=== PATIENT | female | born 1965 | race American Indian/Alaskan Native ===

== ENCOUNTER 2016-11-12 06:18 | Day surgery (SDC) | payer MEDICAID ==
[~2016-11-12 06:18] MED LIST: TETCAINE OS PRN
[2016-11-12] MEDS ORDERED: TETRACAINE 0.5% OS PRN (07:16)
[2016-11-12] MEDS ORDERED: PRED FORTE 1% ONE (08:00)
[2016-11-12] MEDS: VIGAMOX OS SCH ×3 (08:45→08:55)
[2016-11-12] MEDS: AK-Dilate OS SCH ×3 (08:45→08:55)
[2016-11-12] MEDS: MYDRIACYL OS SCH ×3 (08:45→08:55)
--- NOTE | 2016-11-12 08:59 | Anesthesia Consultation ---
Anesthesia Consult and Med Hx Date of service: 11/12/16 - Airway Anesthetic Teeth Evaluation: Poor ROM Head & Neck: Adequate Mental/Hyoid Distance: Adequate Mallampati Class: Class I Intubation Access Assessment: Good - Pulmonary Exam CTA: Yes - Cardiac Exam Cardiac Exam: RRR - Pre-Operative Health Status ASA Pre-Surgery Classification: ASA3 Proposed Anesthetic Plan: MAC - Cardiovascular System Hx Heart Attack/AMI: Yes (about 15yrs ago) Hx Percutaneous Transluminal Coronary Angioplasty (PTCA): Yes - Central Nervous System Hx Psychiatric Problems: Yes - Gastrointestinal Hx Gastroesophageal Reflux Disease: Yes - Endocrine 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
[2016-11-12] MEDS ORDERED: NACL 0.9% 1000 ML 1,000 ML IV SCH ×2 (09:00→10:00)
[2016-11-12] MEDS ORDERED: PEPCID PO NR (09:00)
--- NOTE | 2016-11-12 09:00 | Anesthesia Day of Surgery ---
Anesthesia Day of Surgery - Day of Surgery Patient Examined: Yes Patient H&P Reviewed: Yes Patient is NPO: Yes
[2016-11-12] MEDS ORDERED: VERSED ONE (11:06)
[2016-11-12] MEDS ORDERED: SUBLIMAZE ONE (11:07)
[2016-11-12] MEDS ORDERED: ADRENALINE P/F IV ONE (11:30)
--- NOTE | 2016-11-12 12:10 | Short Stay Summary ---
Short Stay Documentation Date of service: 11/12/16 - History H&P: obtained from office - Allergies and Medications Current Medications: Allergies No Known Allergies Allergy (Unverified 11/06/16 14:25) Home Medications Medication Instructions Recorded Confirmed Last Taken Type Insulin NPH/Regular [Novolin 70/30] 15 unit SQ QPM #1 vial 10/22/16 11/12/16 Rx Insulin NPH/Regular [Novolin 70/30] 45 unit SQ QAM #1 vial 10/22/16 11/12/16 Rx Omeprazole [Omeprazole] 40 mg PO DAILY 10/22/16 11/12/16 11/11/16 History Syring W-Ndl,Disp,Insul,0.5 ml 1 each MC BID #1 box 10/22/16 11/12/16 10/22/16 Rx [[facility]ocate Syringes] Active Medications Famotidine (Pepcid) 20 mg PO PREOP NR Stop: 11/12/16 23:59 Last Admin: 11/12/16 09:03 Dose: 20 mg Sodium Chloride (Nacl 0.9% 1000 Ml) 1,000 mls @ 150 mls/hr IV DIRECT JESSICA Last Admin: 11/12/16 09:06 Dose: 150 mls/hr Sodium Chloride (Nacl 0.9% 1000 Ml) 1,000 mls @ 150 mls/hr IV DIRECT JESSICA Moxifloxacin HCl (Vigamox) 1 drops OS Q5MIN [facility] Stop: 11/14/16 00:02 Last Admin: 11/12/16 08:55 Dose: 1 drops Phenylephrine HCl (Ak-Dilate) 1 drops OS Q5M [facility] Last Admin: 11/12/16 08:55 Dose: 1 drops Prednisolone Acetate (Pred Forte 1%) 1 drops OS QID JESSICA Tetracaine HCl (Tetracaine 0.5%) 1 drops OS Q5M PRN PRN Reason: Anesthesia Stop: 11/12/16 16:00 Last Admin: 11/12/16 08:45 Dose: 1 drops Tropicamide (Mydriacyl) 1 drops OS Q5MIN [facility] Last Admin: 11/12/16 08:55 Dose: 1 drops - Brief post op/procedure progress note Date of procedure: 11/12/16 Pre-op diagnosis: cataract left eye Post-op diagnosis: same Procedure: Phacoemulsification with intraocular lens insertion left eye Anesthesia: MAC Surgeon: GHANSHYAM DONIS Estimated blood loss: none Pathology: none Condition: stable - Disposition Condition at discharge: Good Disposition: DISCHARGED TO HOME OR SELFCARE - Discharge Diagnoses (1) Cataract Status: Resolved
--- NOTE | 2016-11-12 12:11 | Operative Report ---
Operative Report Operative Report: PATIENT'S NAME: DATE OF : DATE OF SURGERY: 11/12/2016 PREOPERATIVE DIAGNOSIS: Cataract left eye POSTOPERATIVE DIAGNOSIS: Same OPERATIVE PROCEDURE: Phacoemulsification with intraocular lens implantation, left eye SURGEON: Katelyn Goins M.D. [employer]IST SURGEON: Edison Lens: [id number] 24.0 D ANESTHESIA: Monitored anesthesia care in combination with topical and intracameral anesthesia because of the established specific risk of reflux, arrhythmias, or anxiety attacks associated with ocular manipulation, as well as the difficulty of the take off worker to manage such potentially catastrophic events while simultaneously attempting to complete the surgical procedure and was deemed necessary for the patient's safety to have an Bakery Sales Clerk present during the procedure whenever possible. An Bakery Sales Clerk was utilized to regulate the intravenous sedation of the patient so the patient was cooperative yet not asleep in order for the patient to successfully maintain fixation of the eye on the operating light of the microscope. COMPLICATIONS: No surgical complications No blood loss. ALLERGIES: No known drug allergies PROGNOSIS: Excellent INDICATIONS FOR SURGERY: The patient is undergoing surgery in the hopes of eliminating or improving these visual difficulties. PROCEDURE: After arriving at the surgery center, the patient was given topical anesthetic and dilating drops, as noted in the record. The patient was then taken into the operating room and given more anesthetic drops. The eyelids, lashes, and lid margins were scrubbed with Betadine solution, and the patient was draped. The Nurse Bakery Sales Clerk administered IV sedation and monitored the patient during the procedure. The eye was then fixated with a 0.12, and a stab incision was made in the peripheral clear cornea into the anterior chamber. This was made on my left side. Viscoelastic was next used to fill the anterior chamber. The eye was once again fixated with the 0.12 forceps and a keratome was used make an incision in clear cornea peripherally on my right hand side temporally. The capsule forceps were used to open the central anterior capsule and then make a continuous round capsulotomy. Hydrodissection was carried out utilizing a cannula and balanced salt solution to delineate the cortical material from the capsule and the nucleus from the cortical material. The phaco tip was introduced into the eye and used to remove the anterior cortical material in the area of the capsulotomy. Then the phaco tip was buried into the nucleus, and a chopping instrument was introduced into the eye and used to provide countertraction in the nucleus between this instrument and the phaco tip fracturing the nucleus. This procedure was repeated multiple times, providing multiple small segments of the lens, and then the phaco tip was used to remove each of these segments. An I/A tip was then used to remove the remaining cortex. The anterior chamber was refilled with viscoelastic. An one-piece, acrylic intraocular lens was then placed into an inserting cartridge. The tip of the inserting cartridge was introduced into the keratome incision and into the anterior chamber. The implant was gently advanced through the cartridge and into the eye, where it unfolded, and both haptics were placed in the capsular bag, where it centered nicely and appeared to be well fixated. After placement of the intraocular lens, the I~and~A handpiece was placed back into the eye and used to remove the viscoelastic, including viscoelastic that was behind the optic of the intraocular lens. The anterior chamber was then filled with balanced salt solution, and hydration of the wound was used to cause swelling of the wound and more appropriate watertight closure. When the wound was found to be firm, the patient was asked to comment on how bright the light was. If there was no light perception at all or if the light was substantially dimmer than during the rest of the surgery, the amount of fluid in the eye was decompressed to lower the intraocular pressure until the patient could see the bright light again. This was done to avoid any damage or decreased blood flow to the optic nerve. MEDICATIONS APPLIED AT END OF SURGERY: One drop of Pred Forte and Vigamox The patient was given a shield to wear at night and was instructed not to rub or push on the eye. DISCHARGE SUMMARY: The patient was released in stable condition. The patient and those with the patient were given a written sheet of postoperative instructions and counseling on any abnormal laboratory studies. The patient is to see us tomorrow for follow-up in the office and is to call immediately for any difficulties. Katelyn Goins M.D. Date
--- NOTE | 2016-11-12 12:30 | Post Anesthesia Evaluation ---
- Post Anesthesia Evaluation Patient Participated: Yes Airway Patent: Yes Stable Respiratory Function: Yes Nausea/Vomiting: No Temp > 96.8F: Yes Pain Manageable: Yes Adequeate Hydration: Yes Anesthesia Complications: No
[2016-11-12 12:44] VITALS: BP 110/62
[2016-11-12] MEDS ORDERED: PRED FORTE 1% OS SCH (14:00)
== END 2016-11-12 13:00 | disposition home or self-care (01) ==
LOC: OR 06:18
DX: E11.36 Type 2 diabetes mellitus with diabetic cataract (principal); I25.10 Atherosclerotic heart disease of native coronary artery without angina pectoris; M19.90 Unspecified osteoarthritis, unspecified site; I10 Essential (primary) hypertension; K21.9 Gastro-esophageal reflux disease without esophagitis; Z98.41 Cataract extraction status, right eye; Z90.710 Acquired absence of both cervix and uterus; Z98.890 Other specified postprocedural states; Z95.5 Presence of coronary angioplasty implant and graft
CPT/HCPCS: 66984; 82962; J0171; J2250; J3010; J7030; V2632; J1815

== ENCOUNTER 2017-10-06 00:56 | Emergency (ER) | payer MEDICAID ==
[2017-10-06 01:53] LABS: Basophils % (Auto) 0.5 % (0.0-1.8); Eosinophils % (Auto) 1.3 % (0.0-4.3); Hematocrit 31.5 % (30.3-42.9); Hemoglobin 10.7 gm/dl (10.1-14.3); Mean Corpuscular HGB Conc 34 % (30-34); Mean Corpuscular Hemoglobin 30 pg (28-32); Mean Corpuscular Volume 87 fl (79-97); Platelet Count 273 K/mm3 (140-440); Red Blood Count 3.62 M/mm3 (3.65-5.03); Red Cell Distribution Width 13.7 % (13.2-15.2); White Blood Count 7.7 K/mm3 (4.5-11.0)
[2017-10-06 02:16] LABS: Albumin 3.4 g/dL (3.9-5); Bilirubin,Total 0.4 mg/dL (0.1-1.2); Calcium 9.9 mg/dL (8.4-10.2); Chloride 97.8 mmol/L (98-107); Potassium 3.6 mmol/L (3.6-5.0); Total Protein 6.9 g/dL (6.3-8.2)
--- NOTE | 2017-10-06 05:45 | XRay Report ---
FINAL REPORT EXAM: XR ABDOMEN 2V HISTORY: ABDOMINAL PAIN COMPARISONS: None. FINDINGS: AP views of the abdomen and pelvis No pneumoperitoneum. Bowel gas pattern is nonobstructive. No pathologic calcification or fracture. IMPRESSION: No acute findings. Consider CT for more sensitive and specific evaluation of abdominal pain as warranted.
[2017-10-06 08:27] LABS: Bilirubin,Urine NEG (Negative); Blood,Urine NEG (Negative); Ketones,Urine NEG (Negative); Leukocyte Esterase,Urine SM (Negative); Nitrite,Urine NEG (Negative); Urobilinogen,Urine < 2.0 mg/dL (<2.0)
[2017-10-06] MEDS ORDERED: TYLENOL PO STA (13:38)
[2017-10-06] MEDS ORDERED: NACL 0.9% 1000 ML 1,000 ML IV ONE (13:38)
--- NOTE | 2017-10-06 13:42 | Emergency Department Report ---
ED General Adult HPI - General Chief complaint: Abdominal Pain Stated complaint: ABD PAIN Time Seen by Provider: 10/06/17 13:31 Source: patient, RN notes reviewed Mode of arrival: Stretcher Limitations: No Limitations - History of Present Illness Initial comments: This is a 52-year-old female who was previously unknown to this provider. Does not have a local primary care doctor, patient endorses past surgical history of hysterectomy, and think she is a diabetic. Patient presents to the ER with abdominal cramping, inability to defecate for one week. Denies headache, neck pain, chest pain, shortness of breath, urinary symptoms. Her symptoms are constant. It did not radiate anywhere. Patient reports her pain increases with palpation, and decreases when eating. -: Gradual, days(s) Location: abdomen Quality: aching Consistency: constant Improves with: rest Worsens with: eating Associated Symptoms: loss of appetite. denies: confusion, chest pain, cough, diaphoresis, fever/chills, headaches - Related Data Home Medications Medication Instructions Recorded Confirmed Last Taken Omeprazole [Omeprazole] 40 mg PO DAILY 10/22/16 11/12/16 11/11/16 Previous Rx's Medication Instructions Recorded Last Taken Type Insulin NPH/Regular [Novolin 70/30] 15 unit SQ QPM #1 vial 10/22/16 10/22/16 Rx Insulin NPH/Regular [Novolin 70/30] 45 unit SQ QAM #1 vial 10/22/16 10/22/16 Rx Syringe-Needle,Insulin,0.5 ml 1 each MC BID #1 box 10/22/16 10/22/16 Rx [[facility] Syringes] Polyethylene Glycol 3350 [Miralax 17 gm PO QDAY #30 packet 10/06/17 Unknown Rx 3350] Allergies Allergy/AdvReac Type Severity Reaction Status Date / Time No Known Allergies Allergy Unverified 11/06/16 14:25 ED Review of Systems ROS: Stated complaint: ABD PAIN Other details as noted in HPI Constitutional: denies: fever Eyes: denies: eye discharge ENT: denies: epistaxis Respiratory: denies: cough Cardiovascular: denies: chest pain Gastrointestinal: abdominal pain, constipation Genitourinary: dysuria Musculoskeletal: as per HPI Skin: as per HPI Neurological: as per HPI. denies: weakness ED Past Medical Hx - Past Medical History Hx Heart Attack/AMI: Yes (about 15yrs ago) Hx Diabetes: Yes (since 1996) Hx GERD: Yes Hx Arthritis: Yes - Surgical History Additional Surgical History: Tonsilectomy, Hysterectomy - Social History Smoking Status: Never Smoker Substance Use Type: None - Medications Home Medications: Home Medications Medication Instructions Recorded Confirmed Last Taken Type Insulin NPH/Regular [Novolin 70/30] 15 unit SQ QPM #1 vial 10/22/16 11/12/16 Rx Insulin NPH/Regular [Novolin 70/30] 45 unit SQ QAM #1 vial 10/22/16 11/12/16 Rx Omeprazole [Omeprazole] 40 mg PO DAILY 10/22/16 11/12/16 11/11/16 History Syringe-Needle,Insulin,0.5 ml 1 each MC BID #1 box 10/22/16 11/12/16 10/22/16 Rx [[facility] Syringes] Polyethylene Glycol 3350 [Miralax 17 gm PO QDAY #30 packet 10/06/17 Unknown Rx 3350] ED Physical Exam - General Limitations: No Limitations General appearance: alert, in no apparent distress - Head Head exam: Present: atraumatic, normocephalic - Eye Eye exam: Present: normal appearance, EOMI. Absent: nystagmus - ENT ENT exam: Present: normal exam, normal orophraynx, mucous membranes moist, normal external ear exam - Neck Neck exam: Present: normal inspection, full ROM - Respiratory Respiratory exam: Present: normal lung sounds bilaterally. Absent: respiratory distress - Cardiovascular Cardiovascular Exam: Present: normal rhythm, tachycardia, normal heart sounds. Absent: systolic murmur, diastolic murmur, rubs, gallop - GI/Abdominal GI/Abdominal exam: Present: soft, tenderness, normal bowel sounds. Absent: distended, guarding, rebound, rigid, pulsatile mass - Extremities Exam Extremities exam: Present: normal inspection, full ROM. Absent: pedal edema, joint swelling, calf tenderness - Back Exam Back exam: Present: normal inspection, full ROM. Absent: tenderness, CVA tenderness (R), paraspinal tenderness, vertebral tenderness - Neurological Exam Neurological exam: Present: alert, CN II-XII intact, other (Extraocular movements intact. Tongue midline. No facial droop. Facial sensation intact to light touch in the V1, V2, V3 distribution bilaterally. 5 and 5 strength in 4 extremities.. Sensation is intact to light touch in 4 extremities.). Absent : motor sensory deficit - Psychiatric Psychiatric exam: Present: normal affect, normal mood - Skin Skin exam: Present: warm, dry, intact, normal color. Absent: rash ED Course Vital Signs 10/06/17 10/06/17 10/06/17 01:02 01:07 15:03 Temperature 97.8 F 97.8 F 98.8 F Pulse Rate 114 H 100 H Respiratory 20 20 16 Rate Blood Pressure 132/80 132/80 Blood Pressure 146/74 [Right] O2 Sat by Pulse 100 100 Oximetry - Reevaluation(s) Reevaluation #1: 10/06/17 14:45 Differential diagnosis, including but limited to: Dehydration, renal insufficiency, constipation, appendicitis, colitis Assessment and plan: 52-year-old female with a primary complaint of constipation , she is afebrile with reassuring vital signs with exception of tachycardia. Laboratory studies do not demonstrate significant anemia, she is found to have mild renal insufficiency, and glucose urea. Patient can follow-up in outpatient primary care doctor for both of these incidental findings. Noncontrast CT scan of the abdomen and pelvis is obtained, patient given IV fluids. When I go to evaluate the patient initially, the patient is sitting on a stretcher and in no distress. Patient has been observed in the ER for hours without clinical decompensation thus far. Reevaluation #2: 10/06/17 15:20 CT scan reviewed. Constipation is suggested. Patient will be discharged with MiraLAX. She will be instructed to follow-up in outpatient primary care doctor for incidental CT scan findings. Return precautions Cautions were reviewed. 10/06/17 15:21 ED Medical Decision Making - Lab Data Result diagrams: 10/06/17 01:25 10/06/17 01:25 Vital Signs 10/06/17 10/06/17 01:02 01:07 Temperature 97.8 F 97.8 F Pulse Rate 114 H Respiratory 20 20 Rate Blood Pressure 132/80 132/80 O2 Sat by Pulse 100 Oximetry Lab Results 10/06/17 10/06/17 10/06/17 Range/Units 01:25 01:25 Unknown WBC 7.7 (4.5-11.0) K/mm3 RBC 3.62 L (3.65-5.03) M/mm3 Hgb 10.7 (10.1-14.3) gm/dl Hct 31.5 (30.3-42.9) % MCV 87 (79-97) fl MCH 30 (28-32) pg MCHC 34 (30-34) % RDW 13.7 (13.2-15.2) % Plt Count 273 (140-440) K/mm3 Lymph % (Auto) 30.7 (13.4-35.0) % [place] % (Auto) 6.9 (0.0-7.3) % Eos % (Auto) 1.3 (0.0-4.3) % Baso % (Auto) 0.5 (0.0-1.8) % Lymph # 2.4 (1.2-5.4) K/mm3 [place] # 0.5 (0.0-0.8) K/mm3 Eos # 0.1 (0.0-0.4) K/mm3 Baso # 0.0 (0.0-0.1) K/mm3 Seg Neutrophils % 60.6 (40.0-70.0) % Seg Neutrophils # 4.6 (1.8-7.7) K/mm3 Sodium 138 (137-145) mmol/L Potassium 3.6 (3.6-5.0) mmol/L Chloride 97.8 L (98-107) mmol/L Carbon Dioxide 23 (22-30) mmol/L Anion Gap 21 mmol/L BUN 13 (7-17) mg/dL Creatinine 1.9 H (0.7-1.2) mg/dL Estimated GFR 33 ml/min BUN/Creatinine Ratio 7 % Glucose 178 H (65-100) mg/dL Calcium 9.9 (8.4-10.2) mg/dL Total Bilirubin 0.40 (0.1-1.2) mg/dL AST 26 (5-40) units/L ALT 26 (7-56) units/L Alkaline Phosphatase 83 (35-129) units/L Total Protein 6.9 (6.3-8.2) g/dL Albumin 3.4 L (3.9-5) g/dL Albumin/Globulin Ratio 1.0 % Lipase 7 L (13-60) units/L Urine Color Yellow (Yellow) Urine Turbidity Clear (Clear) Urine pH 6.0 (5.0-7.0) Ur Specific [place] 1.009 (1.003-1.030) Urine Protein 100 mg/dl (Negative) mg/dL Urine Glucose (UA) >=500 (Negative) mg/dL Urine Ketones Neg (Negative) mg/dL Urine Blood Neg (Negative) Urine Nitrite Neg (Negative) Urine Bilirubin Neg (Negative) Urine Urobilinogen < 2.0 (<2.0) mg/dL Ur Leukocyte Esterase Sm (Negative) Urine WBC (Auto) 17.0 H (0.0-6.0) /HPF Urine RBC (Auto) 5.0 (0.0-6.0) /HPF U Epithel Cells (Auto) < 1.0 (0-13.0) /HPF - Radiology Data Radiology results: pending, report reviewed, image reviewed interpreted by me: X-ray of the abdomen and pelvis negative for acute disease Critical care attestation.: If time is entered above; I have spent that time in minutes in the direct care of this critically ill patient, excluding procedure time. ED Disposition Clinical Impression: Renal insufficiency, Constipation Disposition: DC-01 TO HOME OR SELFCARE Is pt being admited?: No Does the pt Need Aspirin: No Condition: Stable Instructions: Constipation (ED) Additional Instructions: Laboratory studies demonstrated mild decrease in kidney function. Avoid consumption of ibuprofen, Motrin, Naprosyn, Aleve. Follow-up with either her primary care doctor or kidney doctor for this within the next month. Dr. Giordano is a local primary care doctor. Dr. Siddiqi is a local kidney doctor. Please note that CT scan of the abdomen and pelvis demonstrated nonspecific lesions in the lungs. This should be followed up by her primary care doctor within the next 2-3 months. Not following up in a timely fashion as recommended may resultant undiagnosed tumor, cancer, malignancy. Increased water consumption to 6-8 cups of water per day. Eat plenty of fruits, fibers, vegetables Return to the ER right away with new pain, worsened pain, migration of pain, fevers, chills, lethargy, irritability, projectile vomiting, change in mental status, confusion, inability to tolerate liquid feeds. Referrals: PRIMARY CAREMD [Primary Care Provider] - 3-5 Days [facility] [Provider Group] - 3-5 Days SYLVESTER SIDDIQI MD [Staff Physician] - 3-5 Days ALEJANDRO GIORDANO MD [Staff Physician] - 3-5 Days
[2017-10-06 15:06] VITALS: BP 146/74
--- NOTE | 2017-10-06 15:15 | Cat Scan Report ---
FINAL REPORT PROCEDURE: CT ABDOMEN PELVIS WO CON TECHNIQUE: Computerized axial tomography of the abdomen and pelvis was performed without intravenous contrast. This study is performed without intravascular contrast material and its sensitivity for abdominal and pelvic pathology, including neoplasms, inflammation, abscess, free fluid, thrombosis, arterial dissection and infarction, is reduced compared with a contrast enhanced study. Oral contrast is not present limiting evaluation of the bowel as well. HISTORY: abd pain COMPARISON: Abdomen 10/06/2017 FINDINGS: Visualized lower thorax: Subtle emphysematous changes left worse than right. 2.2 millimeter nodular density of the right lower lobe posteriorly for example seen on series 3, image 14.. Liver: Normal size and attenuation. Spleen: Normal size and attenuation. Gallbladder and biliary system: Normal. Pancreas: Normal. Adrenals: Normal. Kidneys: Normal. GI tract: Retained oral contrast versus inspissated stool within the rectum and distal sigmoid colon. Colonic constipation without obstruction. Normal appendix. Lymph nodes and mesentery: No mesenteric mass. No lymphadenopathy. Vasculature: Mild atherosclerosis. No abdominal aortic aneurysm. Bladder: Normal. Reproductive organs: Hysterectomy. Peritoneum: No free fluid. Musculoskeletal structures: No significant abnormality. Other: None. IMPRESSION: Colonic constipation without bowel obstruction. Hyperdensity within the distal sigmoid colon and rectum either retained oral contrast or inspissated stool. 2.2 millimeter right lower lobe nodular density possibly a nodular scar. Follow-up with noncontrast CT of the chest in 3 months is recommended to ensure stability of this finding as well as to evaluate for multiplicity of lesions. Hysterectomy.
== END 2017-10-06 15:35 | disposition home or self-care (01) ==
LOC: ED 00:56
DX: K59.00 Constipation, unspecified (principal); E11.9 Type 2 diabetes mellitus without complications; K21.9 Gastro-esophageal reflux disease without esophagitis; M19.90 Unspecified osteoarthritis, unspecified site; I25.2 Old myocardial infarction; Z88.1 Allergy status to other antibiotic agents; Z90.89 Acquired absence of other organs; Z90.710 Acquired absence of both cervix and uterus
CPT/HCPCS: 36415; 74020; 74176; 80053; 81001; 83690; 85025; 96360; 99285; J7030

== ENCOUNTER 2017-10-07 19:11 | Emergency (ER) | payer MEDICAID ==
[2017-10-07 21:14] VITALS: BP 130/77
[2017-10-07 21:42] LABS: Basophils % (Auto) 0.3 % (0.0-1.8); Eosinophils % (Auto) 2.2 % (0.0-4.3); Hematocrit 29.5 % (30.3-42.9); Hemoglobin 9.9 gm/dl (10.1-14.3); Mean Corpuscular HGB Conc 34 % (30-34); Mean Corpuscular Hemoglobin 29 pg (28-32); Mean Corpuscular Volume 86 fl (79-97); Platelet Count 257 K/mm3 (140-440); Red Blood Count 3.42 M/mm3 (3.65-5.03); Red Cell Distribution Width 13.8 % (13.2-15.2); White Blood Count 10.5 K/mm3 (4.5-11.0)
[2017-10-07 22:03] LABS: Albumin 3.3 g/dL (3.9-5); Bilirubin,Total 0.4 mg/dL (0.1-1.2); Calcium 9.4 mg/dL (8.4-10.2); Potassium 3.9 mmol/L (3.6-5.0)
[2017-10-07 22:45] LABS: Albumin/Globulin Ratio 1.1 %; Total Protein 6.2 g/dL (6.3-8.2)
== END 2017-10-08 01:45 | disposition left against medical advice (07) ==
LOC: ED 19:11
DX: K59.00 Constipation, unspecified (principal); Z53.21 Procedure and treatment not carried out due to patient leaving prior to being seen by health care provider
CPT/HCPCS: 36415; 80053; 82962; 85025

== ENCOUNTER 2018-07-21 00:22 | Emergency (ER) | payer MEDICAID ==
[2018-07-21 06:14] VITALS: BP 141/88
[2018-07-21] MEDS ORDERED: MOTRIN PO ONE (06:15)
--- NOTE | 2018-07-21 06:19 | Emergency Department Report ---
- General Chief complaint: Laceration/Recheck/Suture Stated complaint: NECK PAIN Time Seen by Provider: 07/21/18 06:14 Source: patient Mode of arrival: Ambulatory Limitations: No Limitations - History of Present Illness Initial comments: 53-year-old -Chinese female with a past medical history of diabetes and hypertension comes in for a ball in the back of her neck and on her left inner breast. Patient has had these in the recent past. Patient's been taking Tylenol for pain which she reports has not helped. Patient is insulin diabetic and NovoLog 7030, first starting and pravastatin. Patient is followed by Dr. Luis Manuel Darby. Patient reports she has a follow-up appointment with her primary care provider on 07/26/2018. MD complaint: abscess/boil -: days(s) (3) Tetanus Up to Date: yes Location: neck Severity scale (0 -10): 8 Quality: aching Consistency: constant Improves with: none Worsens with: none Context: none Associated symptoms: denies other symptoms - Related Data Home Medications Medication Instructions Recorded Confirmed Last Taken Omeprazole 40 mg PO DAILY 10/22/16 11/12/16 11/11/16 Previous Rx's Medication Instructions Recorded Last Taken Type Insulin NPH/Regular [Novolin 70/30] 15 unit SQ QPM #1 vial 10/22/16 10/22/16 Rx Insulin NPH/Regular [Novolin 70/30] 45 unit SQ QAM #1 vial 10/22/16 10/22/16 Rx Syringe-Needle,Insulin,0.5 ml 1 each MC BID #1 box 10/22/16 10/22/16 Rx [Advocate Syringes] Polyethylene Glycol 3350 [Miralax 17 gm PO QDAY #30 packet 10/06/17 Unknown Rx 3350] Cephalexin [Keflex] 500 mg PO BID #20 capsule 07/21/18 Unknown Rx Ibuprofen [Motrin 600 MG tab] 600 mg PO Q8H PRN #30 tablet 07/21/18 Unknown Rx Sulfamethoxazole/Trimethoprim 1 each PO BID 10 Days #20 tablet 07/21/18 Unknown Rx [Bactrim DS TAB] Allergies Allergy/AdvReac Type Severity Reaction Status Date / Time doxycycline Allergy Anaphylaxis Verified 10/07/17 22:04 erythromycin base Allergy Anaphylaxis Verified 10/07/17 22:04 Tetracyclines Allergy Anaphylaxis Verified 10/07/17 22:04 Abscess Boil HPI - HPI Chief Complaint: Laceration/Recheck/Suture Stated Complaint: NECK PAIN Time Seen by Provider: 07/21/18 06:14 Duration: 3 Days Location: Neck Severity: Moderate History: Yes Pain, Yes Previous History, Yes Insect Bite, No Fever, No Purulent Drainage, No Numbness, No Foreign Body Home Medications: Home Medications Medication Instructions Recorded Confirmed Last Taken Omeprazole 40 mg PO DAILY 10/22/16 11/12/16 11/11/16 Previous Rx's Medication Instructions Recorded Last Taken Type Insulin NPH/Regular [Novolin 70/30] 15 unit SQ QPM #1 vial 10/22/16 10/22/16 Rx Insulin NPH/Regular [Novolin 70/30] 45 unit SQ QAM #1 vial 10/22/16 10/22/16 Rx Syringe-Needle,Insulin,0.5 ml 1 each MC BID #1 box 10/22/16 10/22/16 Rx [Advocate Syringes] Polyethylene Glycol 3350 [Miralax 17 gm PO QDAY #30 packet 10/06/17 Unknown Rx 3350] Cephalexin [Keflex] 500 mg PO BID #20 capsule 07/21/18 Unknown Rx Ibuprofen [Motrin 600 MG tab] 600 mg PO Q8H PRN #30 tablet 07/21/18 Unknown Rx Sulfamethoxazole/Trimethoprim 1 each PO BID 10 Days #20 tablet 07/21/18 Unknown Rx [Bactrim DS TAB] Allergies/Adverse Reactions: Allergies Allergy/AdvReac Type Severity Reaction Status Date / Time doxycycline Allergy Anaphylaxis Verified 10/07/17 22:04 erythromycin base Allergy Anaphylaxis Verified 10/07/17 22:04 Tetracyclines Allergy Anaphylaxis Verified 10/07/17 22:04 ED Review of Systems ROS: Stated complaint: NECK PAIN Other details as noted in HPI Comment: All other systems reviewed and negative Skin: lesions ED Past Medical Hx - Past Medical History Previous Medical History?: Yes Hx Heart Attack/AMI: Yes (about 15yrs ago) Hx Diabetes: Yes (since 1996) Hx GERD: Yes Hx Arthritis: Yes - Surgical History Past Surgical History?: Yes Additional Surgical History: Tonsilectomy, Hysterectomy - Social History Smoking Status: Never Smoker Substance Use Type: None - Medications Home Medications: Home Medications Medication Instructions Recorded Confirmed Last Taken Type Insulin NPH/Regular [Novolin 70/30] 15 unit SQ QPM #1 vial 10/22/16 11/12/16 Rx Insulin NPH/Regular [Novolin 70/30] 45 unit SQ QAM #1 vial 10/22/16 11/12/16 Rx Omeprazole 40 mg PO DAILY 10/22/16 11/12/16 11/11/16 History Syringe-Needle,Insulin,0.5 ml 1 each MC BID #1 box 10/22/16 11/12/16 10/22/16 Rx [Advocate Syringes] Polyethylene Glycol 3350 [Miralax 17 gm PO QDAY #30 packet 10/06/17 Unknown Rx 3350] Cephalexin [Keflex] 500 mg PO BID #20 capsule 07/21/18 Unknown Rx Ibuprofen [Motrin 600 MG tab] 600 mg PO Q8H PRN #30 tablet 07/21/18 Unknown Rx Sulfamethoxazole/Trimethoprim 1 each PO BID 10 Days #20 tablet 07/21/18 Unknown Rx [Bactrim DS TAB] ED Physical Exam - General Limitations: No Limitations General appearance: alert, in no apparent distress - Head Head exam: Present: atraumatic, normocephalic - Eye Eye exam: Present: EOMI - ENT ENT exam: Present: mucous membranes moist - Neurological Exam Neurological exam: Present: alert, oriented X3 - Psychiatric Psychiatric exam: Present: normal affect, normal mood - Skin Skin exam: Present: warm, dry. Absent: rash - Expanded Skin Exam Expanded Type of lesion: Present: abscess Distribution of rash: neck, other (inner left breast) Description of rash: Present: tenderness, erythematous, fluctuant, indurated ED Course Vital Signs 07/21/18 07/21/18 00:34 06:13 Temperature 99.4 F 98.9 F Pulse Rate 86 88 Respiratory 16 18 Rate Blood Pressure 148/90 Blood Pressure 141/88 [Left] O2 Sat by Pulse 100 100 Oximetry ED Medical Decision Making - Medical Decision Making Patient was evaluated by this provider fast track. Ibuprofen given for pain management First dose of antibiotics given to patient. Discussed with patient to follow up with her primary care provider. Critical care attestation.: If time is entered above; I have spent that time in minutes in the direct care of this critically ill patient, excluding procedure time. ED Disposition Clinical Impression: Abscess Disposition: DC-01 TO HOME OR SELFCARE Is pt being admited?: No Does the pt Need Aspirin: No Condition: Stable Instructions: Abscess (ED) Additional Instructions: Complete all antibiotics as prescribed. Pain medication as needed for pain. Follow-up with her primary care provider in the next 3-5 days. Prescriptions: Cephalexin [Keflex] 500 mg PO BID #20 capsule Ibuprofen [Motrin 600 MG tab] 600 mg PO Q8H PRN #30 tablet PRN Reason: Pain Sulfamethoxazole/Trimethoprim [Bactrim DS TAB] 1 each PO BID 10 Days #20 tablet Referrals: LUIS MANUEL DARBY MD [Primary Care Provider] - 3-5 Days
[2018-07-21] MEDS ORDERED: KEFLEX PO ONE (06:22)
[2018-07-21] MEDS ORDERED: BACTRIM DS PO ONE (06:22)
== END 2018-07-21 06:30 | disposition home or self-care (01) ==
LOC: ED 00:22
DX: N61.1 Abscess of the breast and nipple (principal); L02.11 Cutaneous abscess of neck; M19.90 Unspecified osteoarthritis, unspecified site; K21.9 Gastro-esophageal reflux disease without esophagitis; E11.9 Type 2 diabetes mellitus without complications; I25.2 Old myocardial infarction; Z90.89 Acquired absence of other organs; Z90.710 Acquired absence of both cervix and uterus; Z79.899 Other long term (current) drug therapy; Z88.1 Allergy status to other antibiotic agents
CPT/HCPCS: 99282

== ENCOUNTER 2019-12-17 10:55 | Inpatient (IN) | payer MEDICAID ==
[2019-12-17] MEDS ORDERED: NALOXONE 0.4 MG/1 ML INJ IV STA (11:03)
[2019-12-17] MEDS ORDERED: DEXTROSE 50% IN WATER (25GM) 50 ML VIAL IV ONE (11:03)
--- NOTE | 2019-12-17 11:23 | Emergency Department Report ---
ED Altered Mental Status HPI - General Chief Complaint: Altered Mental Status Stated Complaint: AMS Time Seen by Provider: 12/17/19 11:02 Source: EMS, old records reviewed Mode of arrival: Stretcher Limitations: Altered Mental Status - History of Present Illness Initial Comments: Mrs. Dobson is a 54 yo female with hx of DM and HTN presents with altered mental status. Family called 911. Patient was found on the bathroom floor. Patient only followed limited commands per EMS. BG 59 per EMS. Patient is nonverbal at this time. I obtained additional information by brother who called EMS. I spoke with this gentleman by phone. He called 911 after finding his sister unresponsive. Found in the bathroom with vomit on the side of her face. He was unable to wake her up. Mrs. Dobson is visiting from [place], [place]. Brother states that Ms. Dobson has been on government assistance for mental health disorder. Mrs. Dobson has been admitted to [facility]. Brother states that she has been "living on street" and in homeless shelters. Mrs. Dobson has been estranged from the family. She leaves from weeks and months at a time without communication with the family. She does not appear to have a personal address. She has her mail sent to her mother's home. MD Complaint: altered mental status, decreased responsiveness -: This morning, unknown Severity: severe Consistency of Symptoms: constant Context: diabetes Associated Symptoms: other (unable to be obtained) - Related Data Home Medications Medication Instructions Recorded Confirmed Last Taken Omeprazole 40 mg PO DAILY 10/22/16 11/12/16 11/11/16 Previous Rx's Medication Instructions Recorded Last Taken Type Insulin NPH/Regular [Novolin 70/30] 15 unit SQ QPM #1 vial 10/22/16 10/22/16 Rx Insulin NPH/Regular [Novolin 70/30] 45 unit SQ QAM #1 vial 10/22/16 10/22/16 Rx Syringe-Needle,Insulin,0.5 ml 1 each MC BID #1 box 10/22/16 10/22/16 Rx [Advocate Syringes] polyethylene glycoL 3350 [Miralax 17 gm PO QDAY #30 packet 10/06/17 Unknown Rx 3350] Cephalexin [Keflex] 500 mg PO BID #20 capsule 07/21/18 Unknown Rx Ibuprofen [Motrin 600 MG tab] 600 mg PO Q8H PRN #30 tablet 07/21/18 Unknown Rx Sulfamethoxazole/Trimethoprim 1 each PO BID 10 Days #20 tablet 07/21/18 Unknown Rx [Bactrim DS TAB] Chlorhexidine Gluconate [Hibiclens] 10 ml TP BID #240 liquid 08/25/18 Unknown Rx Ketorolac [Toradol] 10 mg PO Q6H PRN #15 tablet 08/25/18 Unknown Rx Sulfamethoxazole/Trimethoprim 1 each PO BID #20 tablet 08/25/18 Unknown Rx [Bactrim DS TAB] cephALEXin [Keflex] 500 mg PO Q6HR #40 capsule 08/25/18 Unknown Rx Allergies Allergy/AdvReac Type Severity Reaction Status Date / Time doxycycline Allergy Anaphylaxis Verified 08/26/18 08:26 erythromycin base Allergy Anaphylaxis Verified 08/26/18 08:26 Tetracyclines Allergy Anaphylaxis Verified 08/26/18 08:26 ED Review of Systems ROS: Stated complaint: AMS Other details as noted in HPI Comment: Unobtainable due to pts medical conditions (altered mental status) ED Past Medical Hx - Past Medical History Previous Medical History?: Yes Hx Heart Attack/AMI: Yes (about 15yrs ago) Hx Diabetes: Yes (since 1996) Hx GERD: Yes Hx Arthritis: Yes - Surgical History Past Surgical History?: Yes Additional Surgical History: Tonsilectomy, Hysterectomy - Social History Smoking Status: Never Smoker Substance Use Type: None - Medications Home Medications: Home Medications Medication Instructions Recorded Confirmed Last Taken Type Insulin NPH/Regular [Novolin 70/30] 15 unit SQ QPM #1 vial 10/22/16 11/12/16 10/22/16 Rx Insulin NPH/Regular [Novolin 70/30] 45 unit SQ QAM #1 vial 10/22/16 11/12/16 10/22/16 Rx Omeprazole 40 mg PO DAILY 10/22/16 11/12/16 11/11/16 History Syringe-Needle,Insulin,0.5 ml 1 each MC BID #1 box 10/22/16 11/12/16 10/22/16 Rx [Advocate Syringes] polyethylene glycoL 3350 [Miralax 17 gm PO QDAY #30 packet 10/06/17 Unknown Rx 3350] Cephalexin [Keflex] 500 mg PO BID #20 capsule 07/21/18 Unknown Rx Ibuprofen [Motrin 600 MG tab] 600 mg PO Q8H PRN #30 tablet 07/21/18 Unknown Rx Sulfamethoxazole/Trimethoprim 1 each PO BID 10 Days #20 tablet 07/21/18 Unknown Rx [Bactrim DS TAB] Chlorhexidine Gluconate [Hibiclens] 10 ml TP BID #240 liquid 08/25/18 Unknown Rx Ketorolac [Toradol] 10 mg PO Q6H PRN #15 tablet 08/25/18 Unknown Rx Sulfamethoxazole/Trimethoprim 1 each PO BID #20 tablet 08/25/18 Unknown Rx [Bactrim DS TAB] cephALEXin [Keflex] 500 mg PO Q6HR #40 capsule 08/25/18 Unknown Rx ED Physical Exam - General Limitations: Altered Mental Status General appearance: other (keeps eyes closed vomitus on mouth and clothes) - Head Head exam: Present: atraumatic, normocephalic - Eye Eye exam: Present: PERRL. Absent: scleral icterus, conjunctival injection - ENT ENT exam: Present: mucous membranes moist - Neck Neck exam: Present: normal inspection, full ROM - Respiratory Respiratory exam: Present: normal lung sounds bilaterally. Absent: respiratory distress, wheezes, rales, rhonchi - Cardiovascular Cardiovascular Exam: Present: regular rate, normal rhythm, normal heart sounds. Absent: systolic murmur, diastolic murmur - GI/Abdominal GI/Abdominal exam: Present: soft. Absent: distended, tenderness, guarding, rebound - Extremities Exam Extremities exam: Present: normal inspection - Neurological Exam Neurological exam: Present: altered, other (Moves all extremities x4 no obvious facial droop.) - Skin Skin exam: Present: warm, dry, intact, normal color ED Course Vital Signs 12/17/19 12/17/19 12/17/19 11:30 12:16 12:30 Pulse Rate 108 H 111 H 108 H Respiratory 18 16 12 Rate Blood Pressure 190/163 160/101 O2 Sat by Pulse 100 99 100 Oximetry 12/17/19 12:46 Pulse Rate 114 H Respiratory 15 Rate Blood Pressure 192/96 O2 Sat by Pulse 100 Oximetry - Lab Data Result diagrams: 12/17/19 11:58 12/17/19 12:16 Lab Results 12/17/19 12/17/19 12/17/19 Range/Units 11:58 11:58 12:16 WBC 8.5 (4.5-11.0) K/mm3 RBC 4.08 (3.65-5.03) M/mm3 Hgb 11.2 (10.1-14.3) gm/dl Hct 35.2 (30.3-42.9) % MCV 86 (79-97) fl MCH 27 L (28-32) pg MCHC 32 (30-34) % RDW 14.7 (13.2-15.2) % Plt Count 262 (140-440) K/mm3 Lymph % (Auto) 18.1 (13.4-35.0) % [place] % (Auto) 6.9 (0.0-7.3) % Eos % (Auto) 0.4 (0.0-4.3) % Baso % (Auto) 0.7 (0.0-1.8) % Lymph # 1.5 (1.2-5.4) K/mm3 [place] # 0.6 (0.0-0.8) K/mm3 Eos # 0.0 (0.0-0.4) K/mm3 Baso # 0.1 (0.0-0.1) K/mm3 Seg Neutrophils % 73.9 H (40.0-70.0) % Seg Neutrophils # 6.3 (1.8-7.7) K/mm3 Sodium 146 H (137-145) mmol/L Potassium 5.0 (3.6-5.0) mmol/L Chloride 112.8 H (98-107) mmol/L Carbon Dioxide 16 L (22-30) mmol/L Anion Gap 22 mmol/L BUN 36 H (7-17) mg/dL Creatinine 4.8 H (0.7-1.2) mg/dL Estimated GFR 11 ml/min BUN/Creatinine Ratio 8 % Glucose 203 H (65-100) mg/dL POC Glucose (70-105) Calcium 10.1 (8.4-10.2) mg/dL Total Bilirubin 0.30 (0.1-1.2) mg/dL AST 31 (5-40) units/L ALT 13 (7-56) units/L Alkaline Phosphatase 61 (35-129) units/L Total Creatine Kinase (30-135) units/L Troponin T 0.105 H* (0.00-0.029) ng/mL Total Protein 7.1 (6.3-8.2) g/dL Albumin 3.6 L (3.9-5) g/dL Albumin/Globulin Ratio 1.0 % Triglycerides 122 (2-149) mg/dL Cholesterol 220 H (50-199) mg/dL LDL Cholesterol Direct 151 H (50-130) mg/dL HDL Cholesterol 57 (40-59) mg/dL Cholesterol/HDL Ratio 3.85 % Urine Color (Yellow) Urine Turbidity (Clear) Urine pH (5.0-7.0) Ur Specific [place] (1.003-1.030) Urine Protein (Negative) mg/dL Urine Glucose (UA) (Negative) mg/dL Urine Ketones (Negative) mg/dL Urine Blood (Negative) Urine Nitrite (Negative) Urine Bilirubin (Negative) Urine Urobilinogen (<2.0) mg/dL Ur Leukocyte Esterase (Negative) Urine WBC (Auto) (0.0-6.0) /HPF Urine RBC (Auto) (0.0-6.0) /HPF U Epithel Cells (Auto) (0-13.0) /HPF Urine Bacteria (Auto) (Negative) /HPF Urine Mucus /HPF Salicylates (2.8-20.0) mg/dL Urine Methadone Screen Acetaminophen (10.0-30.0) ug/mL Ur Barbiturates Screen Ur Phencyclidine Scrn Ur Amphetamines Screen U Benzodiazepines Scrn Urine Cocaine Screen U Marijuana (THC) Screen Drugs of Abuse Note Plasma/Serum Alcohol < 0.01 (0-0.07) % 12/17/19 12/17/19 12/17/19 Range/Units 12:16 12:16 12:16 WBC (4.5-11.0) K/mm3 RBC (3.65-5.03) M/mm3 Hgb (10.1-14.3) gm/dl Hct (30.3-42.9) % MCV (79-97) fl MCH (28-32) pg MCHC (30-34) % RDW (13.2-15.2) % Plt Count (140-440) K/mm3 Lymph % (Auto) (13.4-35.0) % [place] % (Auto) (0.0-7.3) % Eos % (Auto) (0.0-4.3) % Baso % (Auto) (0.0-1.8) % Lymph # (1.2-5.4) K/mm3 [place] # (0.0-0.8) K/mm3 Eos # (0.0-0.4) K/mm3 Baso # (0.0-0.1) K/mm3 Seg Neutrophils % (40.0-70.0) % Seg Neutrophils # (1.8-7.7) K/mm3 Sodium (137-145) mmol/L Potassium (3.6-5.0) mmol/L Chloride (98-107) mmol/L Carbon Dioxide (22-30) mmol/L Anion Gap mmol/L BUN (7-17) mg/dL Creatinine (0.7-1.2) mg/dL Estimated GFR ml/min BUN/Creatinine Ratio % Glucose (65-100) mg/dL POC Glucose (70-105) Calcium (8.4-10.2) mg/dL Total Bilirubin (0.1-1.2) mg/dL AST (5-40) units/L ALT (7-56) units/L Alkaline Phosphatase (35-129) units/L Total Creatine Kinase 432 H (30-135) units/L Troponin T (0.00-0.029) ng/mL Total Protein (6.3-8.2) g/dL Albumin (3.9-5) g/dL Albumin/Globulin Ratio % Triglycerides (2-149) mg/dL Cholesterol (50-199) mg/dL LDL Cholesterol Direct (50-130) mg/dL HDL Cholesterol (40-59) mg/dL Cholesterol/HDL Ratio % Urine Color (Yellow) Urine Turbidity (Clear) Urine pH (5.0-7.0) Ur Specific [place] (1.003-1.030) Urine Protein (Negative) mg/dL Urine Glucose (UA) (Negative) mg/dL Urine Ketones (Negative) mg/dL Urine Blood (Negative) Urine Nitrite (Negative) Urine Bilirubin (Negative) Urine Urobilinogen (<2.0) mg/dL Ur Leukocyte Esterase (Negative) Urine WBC (Auto) (0.0-6.0) /HPF Urine RBC (Auto) (0.0-6.0) /HPF U Epithel Cells (Auto) (0-13.0) /HPF Urine Bacteria (Auto) (Negative) /HPF Urine Mucus /HPF Salicylates < 0.3 L (2.8-20.0) mg/dL Urine Methadone Screen Acetaminophen < 5.0 L (10.0-30.0) ug/mL Ur Barbiturates Screen Ur Phencyclidine Scrn Ur Amphetamines Screen U Benzodiazepines Scrn Urine Cocaine Screen U Marijuana (THC) Screen Drugs of Abuse Note Plasma/Serum Alcohol (0-0.07) % 12/17/19 12/17/19 12/17/19 Range/Units 12:24 13:31 13:31 WBC (4.5-11.0) K/mm3 RBC (3.65-5.03) M/mm3 Hgb (10.1-14.3) gm/dl Hct (30.3-42.9) % MCV (79-97) fl MCH (28-32) pg MCHC (30-34) % RDW (13.2-15.2) % Plt Count (140-440) K/mm3 Lymph % (Auto) (13.4-35.0) % [place] % (Auto) (0.0-7.3) % Eos % (Auto) (0.0-4.3) % Baso % (Auto) (0.0-1.8) % Lymph # (1.2-5.4) K/mm3 [place] # (0.0-0.8) K/mm3 Eos # (0.0-0.4) K/mm3 Baso # (0.0-0.1) K/mm3 Seg Neutrophils % (40.0-70.0) % Seg Neutrophils # (1.8-7.7) K/mm3 Sodium (137-145) mmol/L Potassium (3.6-5.0) mmol/L Chloride (98-107) mmol/L Carbon Dioxide (22-30) mmol/L Anion Gap mmol/L BUN (7-17) mg/dL Creatinine (0.7-1.2) mg/dL Estimated GFR ml/min BUN/Creatinine Ratio % Glucose (65-100) mg/dL POC Glucose 201 H (70-105) Calcium (8.4-10.2) mg/dL Total Bilirubin (0.1-1.2) mg/dL AST (5-40) units/L ALT (7-56) units/L Alkaline Phosphatase (35-129) units/L Total Creatine Kinase (30-135) units/L Troponin T (0.00-0.029) ng/mL Total Protein (6.3-8.2) g/dL Albumin (3.9-5) g/dL Albumin/Globulin Ratio % Triglycerides (2-149) mg/dL Cholesterol (50-199) mg/dL LDL Cholesterol Direct (50-130) mg/dL HDL Cholesterol (40-59) mg/dL Cholesterol/HDL Ratio % Urine Color Yellow (Yellow) Urine Turbidity Slightly-cloudy (Clear) Urine pH 5.0 (5.0-7.0) Ur Specific [place] 1.013 (1.003-1.030) Urine Protein >500 (Negative) mg/dL Urine Glucose (UA) 50 (Negative) mg/dL Urine Ketones Neg (Negative) mg/dL Urine Blood Mod (Negative) Urine Nitrite Neg (Negative) Urine Bilirubin Neg (Negative) Urine Urobilinogen < 2.0 (<2.0) mg/dL Ur Leukocyte Esterase Tr (Negative) Urine WBC (Auto) 4.0 (0.0-6.0) /HPF Urine RBC (Auto) 2.0 (0.0-6.0) /HPF U Epithel Cells (Auto) 2.0 (0-13.0) /HPF Urine Bacteria (Auto) 1+ (Negative) /HPF Urine Mucus Few /HPF Salicylates (2.8-20.0) mg/dL Urine Methadone Screen Presumptive negative Acetaminophen (10.0-30.0) ug/mL Ur Barbiturates Screen Presumptive negative Ur Phencyclidine Scrn Presumptive negative Ur Amphetamines Screen Presumptive negative U Benzodiazepines Scrn Presumptive negative Urine Cocaine Screen Presumptive negative U Marijuana (THC) Screen Presumptive negative Drugs of Abuse Note Disclamer Plasma/Serum Alcohol (0-0.07) % 12/17/19 12:45 EKG obtained 1240 Sinus tachycardia rate 115 bpm normal axis normal intervals no ST elevation no signs of ischemia - Radiology Data Radiology results: report reviewed CT head without acute findings according to radiology impression Chest radiograph no acute findings according to radiology impression - Medical Decision Making 1. Acute encephalopathy: Differential diagnosis includes prolonged hypoglycemia, seizure due to hypoglycemia, uremia, toxic ingestion, intentional overdose. UDS negative. Serum toxicology negative. No indication of acute CVA or intracranial hemorrhage. I do not suspect meningitis with out fever or men ingismus. No change in mental status with naloxone administration here in emergency department. Mental status has slightly improved. I have also consulted our psychiatric team. Mental health diabetologist will attempt to obtain information from [place]. 2. Acute kidney injury: Markedly decreased GFR since previous labs were obtained 2-1/2 years ago. CK slightly elevated. Urinalysis do not indicate myoglobinuria. 3. Hypoglycemia: Blood sugar 59 per EMS arrival. Received dextrose here in the emergency department. Admitted to the hospital service in fair condition. Critical care attestation.: If time is entered above; I have spent that time in minutes in the direct care of this critically ill patient, excluding procedure time. ED Disposition Clinical Impression: Acute encephalopathy, Acute kidney injury, Hypoglycemia Disposition: [id number] OP ADMIT IP TO THIS HOSP Is pt being admited?: Yes Does the pt Need Aspirin: No Condition: Stable Referrals: PRIMARY CARE, [Primary Care Provider] - 3-5 Days
--- NOTE | 2019-12-17 11:36 | Cat Scan Report ---
CT head/brain wo con INDICATION: Altered Mental Status. TECHNIQUE: Routine CT head without contrast. All CT scans at this location are performed using CT dos e reduction for ALARA by means of automated exposure control. COMPARISON: None. FINDINGS: BRAIN / INTRACRANIAL CONTENTS: No acute hemorrhage, mass effect, midline shift, or hydrocephalus. No appreciable acute large territorial or lacunar infarct. No chronic infarct or focal atrophy. Normal b rain volume and ventricular/sulcal size for age. ORBITS: No significant abnormality of visualized orbits. SINUSES / MASTOIDS: No significant abnormality of visualized sinuses and mastoid air cells. ADDITIONAL FINDINGS: None. IMPRESSION: 1. No acute intracranial abnormality. Signer Name: Fco Patel MD Signed: 12/17/2019 11:31 AM Workstation Name: [email or web address]
--- NOTE | 2019-12-17 11:49 | XRay Report ---
CHEST 1 VIEW INDICATION / CLINICAL INFORMATION: MAIN: Altered Mental Status; Per EMS pt was found in restroom on floor by family. Pt is responsive to pain stimuli. . COMPARISON: 02/25/2011 FINDINGS: SUPPORT DEVICES: None. HEART / MEDIASTINUM: No significant abnormality. LUNGS / PLEURA: No significant pulmonary or pleural abnormality. No pneumothorax. ADDITIONAL FINDINGS: No visible obvious fractures identified. IMPRESSION: 1. No acute findings. No interval change. Signer Name: Caryl Parks MD Signed: 12/17/2019 11:44 AM Workstation Name: [id number]
[2019-12-17 12:12] LABS: Basophils # (Auto) 0.1 K/mm3 (0.0-0.1); Basophils % (Auto) 0.7 % (0.0-1.8); Eosinophils % (Auto) 0.4 % (0.0-4.3); Hematocrit 35.2 % (30.3-42.9); Hemoglobin 11.2 gm/dl (10.1-14.3); Lymphocytes # (Auto) 1.5 K/mm3 (1.2-5.4); Lymphocytes % (Auto) 18.1 % (13.4-35.0); Mean Corpuscular HGB Conc 32 % (30-34); Mean Corpuscular Volume 86 fl (79-97); Monocytes # (Auto) 0.6 K/mm3 (0.0-0.8); Monocytes % (Auto) 6.9 % (0.0-7.3); Platelet Count 262 K/mm3 (140-440); Red Blood Count 4.08 M/mm3 (3.65-5.03); Red Cell Distribution Width 14.7 % (13.2-15.2)
[2019-12-17 12:51] LABS: Albumin 3.6 g/dL (3.9-5); Calcium 10.1 mg/dL (8.4-10.2)
[2019-12-17 13:16] LABS: Chol/HDL Ratio 3.85 %
[2019-12-17 13:47] LABS: Amphetamine Screen,Urine PRESUMPTIVE NEGATIVE; Bacteria,Urine 1+ /HPF (Negative); Benzodiazepines Screen,Urine PRESUMPTIVE NEGATIVE; Bilirubin,Urine NEG (Negative); Blood,Urine MOD (Negative); Cannabinoid Screen,Urine PRESUMPTIVE NEGATIVE; Cocaine Screen,Urine PRESUMPTIVE NEGATIVE; Color,Urine Yellow (Yellow); Methadone Screen,Urine PRESUMPTIVE NEGATIVE; Mucus,Urine FEW /HPF; Urobilinogen,Urine < 2.0 mg/dL (<2.0)
[2019-12-17 13:48] LABS: Protein,Urine >500 mg/dL (Negative)
--- NOTE | 2019-12-17 13:55 | History and Physical Report ---
History of Present Illness Chief complaint: She is confused and cannot take care of herself History of present illness: 54 YO Female with DM, HTN, GERD, OA, CO, Psychosis NOS presents to ED for evaluation. Patient is lethargic/stuporous at time of my exam and is unable to provide history. Patient history is provided by the patient's brother who is at the bedside throughout the exam and interview. As per the patient's brother, the patient was found down and unresponsive this morning lying on the bathroom floor with vomit on the side of her face. EMS was notified and upon arrival the patient was found to be in distress and subsequently transported to [facility] for further care and evaluation. Patient seen and evaluated in the emergency department. Lab and imaging studies reviewed. Patient found to have acute kidney injury, metabolic acidosis, metabolic encephalopathy, hypernatremia and volume depletion. Patient admitted to medical floor due to high risk of renal and neurologic decompensation. Nephrology team consulted in ED. Patient is currently bedbound, not following commands, and requires 6 out of 6 assistance with daily living. Patient requires assistance with repositioning in bed. Patient does not track. Patient is not having any neurologic deficits and is moving all extremities and is able to protect her airway. No reports of fever, chills, chest pain, palpitations, trauma, productive cough, skin rash, recent ill contacts. No prior admission for review. All listed medication has been reconciled at time of admission. +30 minutes additional care time devoted to discussion of care plan. Case management consulted for discharge planning. Past History Past Medical History: arthritis, diabetes, GERD, hypertension, other (See HPI) Past Surgical History: hysterectomy, tonsillectomy Social history: single Family history: diabetes, hypertension Medications and Allergies Allergies Allergy/AdvReac Type Severity Reaction Status Date / Time doxycycline Allergy Anaphylaxis Verified 08/26/18 08:26 erythromycin base Allergy Anaphylaxis Verified 08/26/18 08:26 Tetracyclines Allergy Anaphylaxis Verified 08/26/18 08:26 Home Medications Medication Instructions Recorded Confirmed Last Taken Type Insulin NPH/Regular [Novolin 70/30] 15 unit SQ QPM #1 vial 10/22/16 11/12/16 10/22/16 Rx Insulin NPH/Regular [Novolin 70/30] 45 unit SQ QAM #1 vial 10/22/16 11/12/16 10/22/16 Rx Omeprazole 40 mg PO DAILY 10/22/16 11/12/16 11/11/16 History Syringe-Needle,Insulin,0.5 ml 1 each MC BID #1 box 10/22/16 11/12/16 10/22/16 Rx [Advocate Syringes] polyethylene glycoL 3350 [Miralax 17 gm PO QDAY #30 packet 10/06/17 Unknown Rx 3350] Cephalexin [Keflex] 500 mg PO BID #20 capsule 07/21/18 Unknown Rx Ibuprofen [Motrin 600 MG tab] 600 mg PO Q8H PRN #30 tablet 07/21/18 Unknown Rx Sulfamethoxazole/Trimethoprim 1 each PO BID 10 Days #20 tablet 07/21/18 Unknown Rx [Bactrim DS TAB] Chlorhexidine Gluconate [Hibiclens] 10 ml TP BID #240 liquid 08/25/18 Unknown Rx Ketorolac [Toradol] 10 mg PO Q6H PRN #15 tablet 08/25/18 Unknown Rx Sulfamethoxazole/Trimethoprim 1 each PO BID #20 tablet 08/25/18 Unknown Rx [Bactrim DS TAB] cephALEXin [Keflex] 500 mg PO Q6HR #40 capsule 08/25/18 Unknown Rx Review of Systems ROS unobtainable: due to mental status Exam - Constitutional Vitals: Temp Pulse Resp BP Pulse Ox 114 H 15 192/96 100 12/17/19 12:46 12/17/19 12:46 12/17/19 12:46 12/17/19 12:46 General appearance: Present: mild distress, disheveled - EENT Eyes: Present: PERRL ENT: hearing intact, clear oral mucosa - Respiratory Respiratory effort: normal Respiratory: bilateral: CTA - Cardiovascular Heart Sounds: Present: S1 & S2. Absent: rub, click - Extremities Extremities: pulses symmetrical, No edema Peripheral Pulses: within normal limits - Abdominal General gastrointestinal: Present: soft, non-tender, non-distended, normal bowel sounds Female genitourinary: Present: normal - Integumentary Integumentary: Present: clear, dry, clammy - Musculoskeletal Musculoskeletal: generalized weakness - Psychiatric Psychiatric: no appropriate mood/affect, no intact judgment & insight, no memory intact - Neurologic Neurologic: CNII-XII intact, no focal deficits, moves all extremities, no gait normal Results - Labs CBC & Chem 7: 12/17/19 11:58 12/17/19 12:16 Labs: Abnormal lab results 12/17/19 12/17/19 12/17/19 Range/Units 11:58 12:16 12:16 MCH 27 L (28-32) pg Seg Neutrophils % 73.9 H (40.0-70.0) % Sodium 146 H (137-145) mmol/L Chloride 112.8 H (98-107) mmol/L Carbon Dioxide 16 L (22-30) mmol/L BUN 36 H (7-17) mg/dL Creatinine 4.8 H (0.7-1.2) mg/dL Glucose 203 H (65-100) mg/dL POC Glucose (70-105) Total Creatine Kinase (30-135) units/L Troponin T 0.105 H* (0.00-0.029) ng/mL Albumin 3.6 L (3.9-5) g/dL Cholesterol 220 H (50-199) mg/dL LDL Cholesterol Direct 151 H (50-130) mg/dL Salicylates < 0.3 L (2.8-20.0) mg/dL Acetaminophen (10.0-30.0) ug/mL 12/17/19 12/17/19 12/17/19 Range/Units 12:16 12:16 12:24 MCH (28-32) pg Seg Neutrophils % (40.0-70.0) % Sodium (137-145) mmol/L Chloride (98-107) mmol/L Carbon Dioxide (22-30) mmol/L BUN (7-17) mg/dL Creatinine (0.7-1.2) mg/dL Glucose (65-100) mg/dL POC Glucose 201 H (70-105) Total Creatine Kinase 432 H (30-135) units/L Troponin T (0.00-0.029) ng/mL Albumin (3.9-5) g/dL Cholesterol (50-199) mg/dL LDL Cholesterol Direct (50-130) mg/dL Salicylates (2.8-20.0) mg/dL Acetaminophen < 5.0 L (10.0-30.0) ug/mL Assessment and Plan - Patient Problems (1) Metabolic encephalopathy Current Visit: Yes Status: Acute Plan to address problem: CT head, neuro check, thyroid panel, supportive care, seizure precautions, aspiration, precautions, fall precautions. (2) Acute kidney injury Current Visit: Yes Status: Acute Plan to address problem: IV fluid resuscitation therapy, urine electrolytes, renal ultrasound, nephrology consulted in ED, avoid nephrotoxic agents. (3) Acidosis Current Visit: Yes Status: Acute Plan to address problem: IV fluid resuscitation therapy, IV bicarbonate therapy, repeat BMP in a.m. (4) Hypernatremia Current Visit: Yes Status: Acute Plan to address problem: IV fluid resuscitation therapy, nephrology service consulted, repeat BMP in a.m. (5) Volume depletion Current Visit: Yes Status: Acute Plan to address problem: IV fluid resuscitation therapy, monitor urine output every shift, repeat BMP in a.m. (6) Debility Current Visit: Yes Status: Acute Plan to address problem: Physical therapy consulted, case management consulted for discharge planning/placement (7) DVT prophylaxis Current Visit: Yes Status: Acute Plan to address problem: SCD to bilateral lower extremities while in bed, prophylactic heparin
[2019-12-17] MEDS ORDERED: ALBUTEROL 2.5 MG/3 ML NEBU IH PRN (13:56)
[2019-12-17] MEDS ORDERED: ONDANSETRON 4 MG/2 ML INJ IV PRN (13:56)
[2019-12-17] MEDS ORDERED: ACETAMINOPHEN 325 MG TAB PO PRN (13:56)
[2019-12-17 13:59] LABS: Opiate Screen,Urine PRESUMPTIVE POSITIVE
[2019-12-17] MEDS ORDERED: SODIUM CHLORIDE 0.9% 1000 ML 1,000 ML IV SCH (14:00)
[2019-12-17] MEDS ORDERED: DEXTROSE 50% IN WATER (25GM) 50 ML SYRINGE IV PRN (14:06)
--- NOTE | 2019-12-17 14:45 | Consultation ---
History of Present Illness - Reason for Consult Consult date: 12/17/19 acute renal failure, chronic renal failure, hypernatremia, metabolic acidosis - History of Present Illness The patient is a 54 YO female with history signficant for DM type 2, HLD, HTN, GERD, Mental health disorder and CKD who presented to [facility] ED 12/17 with AMS. Patient was unable to provide any history and there was no family members at the bedside. Patient was found on the bathroom floor unresponsive by the family me mber. Patient only followed limited commands per EMS. BG 59 per EMS. Ms. Dobson is visiting from [place], [place]. Per brother Ms. Dobson has been on government assistance for mental health disorder. Ms. Dobson has been admitted to [facility]. has been estranged from the family and "living on street" and in homeless shelters. Initial BP was 190/168. Labs significant for Creat 4.8, Sodium 146 and bicarb 16. CXR and CT head negative for acute process. Nephrology was consulted for evaluation and treatment of GIGI. Past History Past Medical History: diabetes, GERD, hypertension, hyperlipidemia, renal failure, other (Mental disorder) Medications and Allergies Allergies Allergy/AdvReac Type Severity Reaction Status Date / Time doxycycline Allergy Anaphylaxis Verified 08/26/18 08:26 erythromycin base Allergy Anaphylaxis Verified 08/26/18 08:26 Tetracyclines Allergy Anaphylaxis Verified 08/26/18 08:26 Home Medications Medication Instructions Recorded Confirmed Last Taken Type Insulin NPH/Regular [Novolin 70/30] 15 unit SQ QPM #1 vial 10/22/16 11/12/16 10/22/16 Rx Insulin NPH/Regular [Novolin 70/30] 45 unit SQ QAM #1 vial 10/22/16 11/12/16 10/22/16 Rx Omeprazole 40 mg PO DAILY 10/22/16 11/12/16 11/11/16 History Syringe-Needle,Insulin,0.5 ml 1 each MC BID #1 box 10/22/16 11/12/16 10/22/16 Rx [Advocate Syringes] polyethylene glycoL 3350 [Miralax 17 gm PO QDAY #30 packet 10/06/17 Unknown Rx 3350] Cephalexin [Keflex] 500 mg PO BID #20 capsule 07/21/18 Unknown Rx Ibuprofen [Motrin 600 MG tab] 600 mg PO Q8H PRN #30 tablet 07/21/18 Unknown Rx Sulfamethoxazole/Trimethoprim 1 each PO BID 10 Days #20 tablet 07/21/18 Unknown Rx [Bactrim DS TAB] Chlorhexidine Gluconate [Hibiclens] 10 ml TP BID #240 liquid 08/25/18 Unknown Rx Ketorolac [Toradol] 10 mg PO Q6H PRN #15 tablet 08/25/18 Unknown Rx Sulfamethoxazole/Trimethoprim 1 each PO BID #20 tablet 08/25/18 Unknown Rx [Bactrim DS TAB] cephALEXin [Keflex] 500 mg PO Q6HR #40 capsule 08/25/18 Unknown Rx Active Meds: Active Medications Acetaminophen (Tylenol) 650 mg PO Q4H PRN PRN Reason: Pain MILD(1-3)/Fever >100.5/CALIX Albuterol (Proventil) 2.5 mg IH Q4HRT PRN PRN Reason: Shortness Of Breath Dextrose (D50w (25gm) Syringe) 50 ml IV Q30MIN PRN; Protocol PRN Reason: Hypoglycemia Sodium Chloride (Nacl 0.45%) 2,000 mls @ 125 mls/hr IV DIRECT JESSICA Insulin Human Lispro (Humalog) 0 unit SUB-Q Q6HR [facility]; Protocol Ondansetron HCl (Zofran) 4 mg IV Q8H PRN PRN Reason: Nausea And Vomiting Pantoprazole Sodium (Protonix) 40 mg PO DAILY [facility] Polyethylene Glycol (Miralax 3350) 17 gm PO QDAY [facility] Sodium Chloride (Sodium Chloride Flush Syringe 10 Ml) 10 ml IV BID [facility] Sodium Chloride (Sodium Chloride Flush Syringe 10 Ml) 10 ml IV PRN PRN PRN Reason: LINE FLUSH Review of Systems ROS unobtainable: due to mental status Exam - Vital Signs Vital signs: Vital Signs Pulse Resp BP Pulse Ox 108 H 18 190/163 100 12/17/19 11:30 12/17/19 11:30 12/17/19 11:30 12/17/19 11:30 - General Appearance General appearance: well-developed, well-nourished, appears stated age, other (barely arousable) EENT: ATNC, PERRL Neck: Present: trachea midline Respiratory: Clear to Ascultation Heart: regular, S1S2, no murmurs Gastrointestinal: Present: normoactive bowel sounds. Absent: tenderness, distended Integumentary: no rash, warm and dry Neurologic: other (she only woke up once and answered her name, otherwise stuporous) Musculoskeletal: Present: other (no edema) Results - Lab Results 12/17/19 11:58 12/17/19 12:16 Most recent lab results Calcium 10.1 mg/dL (8.4-10.2) 12/17/19 12:16 - Image Kidney/bladder ultrasound: pending Assessment and Plan 1. Acute kidney injury: Suspect vasomotor GIGI superimposed on CKD. Worsening CKD is not ruled out. History is very limited. No hypotension. Creatinine was 1.5 (10/2017) Urine studies and Renal US ordered. Started on IV fluids. Monitor renal function. Renal prognosis is guarded. Avoid nephrotoxic agents. Meds dosage based on GFR. 2. FEN: Metabolic acidosis, monitor. Mild hypernatremia, 1/2 NS, monitor. Monitor lytes. 3. Metabolic encephalopathy: Head CT negative. U.tox positive for Opiates. 4. Hypoglycemia: Blood sugar 59 per EMS arrival. Received dextrose in the ED. 5. Proteinuria: Likely diabetic nephropathy. 6. Elevated troponin. ?from GIGI on CKD. 7. Hypertension: Patient will not be able to swallow pills at this time. Clonidine patch. Follow BP.
[2019-12-17] MEDS ORDERED: SODIUM CHLORIDE 0.45% 2,000 ML IV SCH (15:00)
[2019-12-17] MEDS ORDERED: cloNIDine TTS 0.3 MG/24 HR PATCH TD SCH (15:00)
[2019-12-17 16:50] LABS: Free T4 (Free Thyroxine) 1.28 ng/dL (0.76-1.46)
[2019-12-17] MEDS ORDERED: hydrALAZINE 20 MG/1 ML INJ ONE (17:19)
[2019-12-17] MEDS: hydrALAZINE 20 MG/1 ML INJ IV PRN (17:19)
[2019-12-17] MEDS: POLYETHYLENE GLYCOL 3350 17 GM POWDER PO SCH (17:36)
[2019-12-17] MEDS: INSULIN LISPRO 100 UNIT/ML SUB-Q SCH (18:08)
[2019-12-17] MEDS: SODIUM CHLORIDE 0.45% 1000 ML 1,000 ML IV SCH (20:28)
[2019-12-17] MEDS ORDERED: SODIUM CHLORIDE 0.45% 1000 ML 1,000 ML IV ONE (20:31)
[2019-12-18] MEDS: INSULIN LISPRO 100 UNIT/ML SUB-Q SCH ×4 (00:28→18:29)
[2019-12-18] MEDS: hydrALAZINE 20 MG/1 ML INJ IV PRN ×2 (04:41→11:46)
[2019-12-18 05:53] LABS: Hematocrit 31.9 % (30.3-42.9); Hemoglobin 10.5 gm/dl (10.1-14.3); Mean Corpuscular HGB Conc 33 % (30-34); Mean Corpuscular Volume 84 fl (79-97); Platelet Count 258 K/mm3 (140-440); Red Cell Distribution Width 14.7 % (13.2-15.2)
[2019-12-18 06:09] LABS: Calcium 9.9 mg/dL (8.4-10.2)
[2019-12-18 06:37] LABS: Basophils % (Manual) 0 % (0.0-1.8); Eosinophils % (Manual) 0 % (0.0-4.3); Total Cells Counted 100
[2019-12-18 06:38] LABS: Platelet Estimate Consistent w Auto; Schistocytes Rare
[2019-12-18] MEDS: PANTOPRAZOLE 40 MG TAB PO SCH ×2 (09:32→11:47)
[2019-12-18] MEDS: POLYETHYLENE GLYCOL 3350 17 GM POWDER PO SCH (09:32)
[2019-12-18] MEDS ORDERED: NON-FORMULARY EACH (Omeprazole [Omeprazole] 40 MG) PO SCH (10:00)
[2019-12-18] MEDS ORDERED: METOPROLOL TARTRATE 50 MG TAB PO SCH ×2 (11:00→20:00)
[2019-12-18] MEDS: amLODIPine 10 MG TAB PO SCH (11:47)
--- NOTE | 2019-12-18 12:10 | Consultation ---
History of Present Illness - Reason for Consult Consult date: 12/18/19 Reason for consult: psychiatric assessment - Chief Complaint Chief complaint: She is confused and cannot take care of herself - History of Present Psychiatric Illness Ms. Dobson is a 54-year-old -Cypriot female, the patient was noted in bed with eyes closed easily aroused with name call, unable to converse with the patient at this time, the patient is very drowsy, each attempt to talk to the patient the patient falls back asleep unable to assess patient at this time. PAST PSYCHIATRIC HISTORY: Unable to assess SOCIAL HISTORY Unable to assess REVIEW OF SYSTEMS ROS cannot be reliably obtained from the patient due to her confusion and somno lence. RECOMMENDATIONS MEDICATIONS: Risks, benefits and alternatives of medications discussed with the patient, questions answered and consent obtained from patient. PSYCHOTHERAPY: Supportive psychotherapy provided MEDICAL: Per primary team DELIRIUM PRECAUTIONS: Please re-orient patient frequently, keep lights on during the day, and minimize benzodiazepines and opiates as these medications could worsen patient's confusion. CANE PUSHER: DISPOSITION: Per primary team; no indication for acute inpatient psychiatric hospitalization at this time, will reassess the patient tomorrow when the pat ient is alert enough to talk. LEGAL STATUS: FOLLOW-UP: Will follow Medications and Allergies Allergies Allergy/AdvReac Type Severity Reaction Status Date / Time doxycycline Allergy Anaphylaxis Verified 08/26/18 08:26 erythromycin base Allergy Anaphylaxis Verified 08/26/18 08:26 Tetracyclines Allergy Anaphylaxis Verified 08/26/18 08:26 Home Medications Medication Instructions Recorded Confirmed Last Taken Type Insulin NPH/Regular [Novolin 70/30] 15 unit SQ QPM #1 vial 10/22/16 11/12/16 Rx Insulin NPH/Regular [Novolin 70/30] 45 unit SQ QAM #1 vial 10/22/16 11/12/16 10/22/16 Rx Omeprazole 40 mg PO DAILY 10/22/16 11/12/16 11/11/16 History Syringe-Needle,Insulin,0.5 ml 1 each MC BID #1 box 10/22/16 11/12/16 10/22/16 Rx [Advocate Syringes] polyethylene glycoL 3350 [Miralax 17 gm PO QDAY #30 packet 10/06/17 Unknown Rx 3350] Cephalexin [Keflex] 500 mg PO BID #20 capsule 07/21/18 Unknown Rx Ibuprofen [Motrin 600 MG tab] 600 mg PO Q8H PRN #30 tablet 07/21/18 Unknown Rx Sulfamethoxazole/Trimethoprim 1 each PO BID 10 Days #20 tablet 07/21/18 Unknown Rx [Bactrim DS TAB] Chlorhexidine Gluconate [Hibiclens] 10 ml TP BID #240 liquid 08/25/18 Unknown Rx Ketorolac [Toradol] 10 mg PO Q6H PRN #15 tablet 08/25/18 Unknown Rx Sulfamethoxazole/Trimethoprim 1 each PO BID #20 tablet 08/25/18 Unknown Rx [Bactrim DS TAB] cephALEXin [Keflex] 500 mg PO Q6HR #40 capsule 08/25/18 Unknown Rx Active Meds: Active Medications Acetaminophen (Tylenol) 650 mg PO Q4H PRN PRN Reason: Pain MILD(1-3)/Fever >100.5/CALIX Albuterol (Proventil) 2.5 mg IH Q4HRT PRN PRN Reason: Shortness Of Breath Amlodipine Besylate (Amlodipine) 10 mg PO QDAY [facility] Last Admin: 12/18/19 11:47 Dose: 10 mg Documented by: Clonidine HCl (Catapres-Tts Patch) 0.3 mg TD QWEEK [facility] Last Admin: 12/17/19 15:40 Dose: 0.3 mg Documented by: Dextrose (D50w (25gm) Syringe) 50 ml IV Q30MIN PRN; Protocol PRN Reason: Hypoglycemia Hydralazine HCl (Apresoline) 10 mg IV Q6HR PRN PRN Reason: Hypertension Last Admin: 12/18/19 11:46 Dose: 10 mg Documented by: Sodium Chloride (Nacl 0.45% 1000 Ml) 1,000 mls @ 75 mls/hr IV DIRECT [facility] Last Admin: 12/17/19 20:28 Dose: 75 mls/hr Documented by: Insulin Human Lispro (Humalog) 0 unit SUB-Q Q6HR [facility]; Protocol Last Admin: 12/18/19 07:30 Dose: Not Given Documented by: Metoprolol Tartrate (Metoprolol) 50 mg PO BID [facility] Last Admin: 12/18/19 11:54 Dose: 50 mg Documented by: Ondansetron HCl (Zofran) 4 mg IV Q8H PRN PRN Reason: Nausea And Vomiting Pantoprazole Sodium (Protonix) 40 mg PO DAILY [facility] Last Admin: 12/18/19 11:47 Dose: 40 mg Documented by: Polyethylene Glycol (Miralax 3350) 17 gm PO QDAY [facility] Last Admin: 12/18/19 09:32 Dose: Not Given Documented by: Sodium Chloride (Sodium Chloride Flush Syringe 10 Ml) 10 ml IV BID [facility] Last Admin: 12/18/19 09:33 Dose: 10 ml Documented by: Sodium Chloride (Sodium Chloride Flush Syringe 10 Ml) 10 ml IV PRN PRN PRN Reason: LINE FLUSH Mental Status Exam - Vital signs Last Vital Signs Temp 99.2 F 12/18/19 11:48 Pulse 111 H 12/18/19 11:48 Resp 18 12/18/19 11:48 BP 189/95 12/18/19 11:48 Pulse Ox 99 12/18/19 11:48 Results Result Diagrams: 12/18/19 04:55 12/18/19 04:55 Abnormal lab results 12/17/19 12/17/19 12/17/19 Range/Units 11:58 12:16 12:16 MCH 27 L (28-32) pg Seg Neutrophils % 73.9 H (40.0-70.0) % Seg Neuts % (Manual) (40.0-70.0) % Seg Neutrophils # Man (1.8-7.7) K/mm3 Sodium 146 H (137-145) mmol/L Chloride 112.8 H (98-107) mmol/L Carbon Dioxide 16 L (22-30) mmol/L BUN 36 H (7-17) mg/dL Creatinine 4.8 H (0.7-1.2) mg/dL Glucose 203 H (65-100) mg/dL POC Glucose (70-105) Total Creatine Kinase (30-135) units/L Troponin T 0.105 H* (0.00-0.029) ng/mL Albumin 3.6 L (3.9-5) g/dL Cholesterol 220 H (50-199) mg/dL LDL Cholesterol Direct 151 H (50-130) mg/dL PTH Intact (15-65) pg/mL Salicylates < 0.3 L (2.8-20.0) mg/dL Acetaminophen (10.0-30.0) ug/mL 12/17/19 12/17/19 12/17/19 Range/Units 12:16 12:16 12:24 MCH (28-32) pg Seg Neutrophils % (40.0-70.0) % Seg Neuts % (Manual) (40.0-70.0) % Seg Neutrophils # Man (1.8-7.7) K/mm3 Sodium (137-145) mmol/L Chloride (98-107) mmol/L Carbon Dioxide (22-30) mmol/L BUN (7-17) mg/dL Creatinine (0.7-1.2) mg/dL Glucose (65-100) mg/dL POC Glucose 201 H (70-105) Total Creatine Kinase 432 H (30-135) units/L Troponin T (0.00-0.029) ng/mL Albumin (3.9-5) g/dL Cholesterol (50-199) mg/dL LDL Cholesterol Direct (50-130) mg/dL PTH Intact (15-65) pg/mL Salicylates (2.8-20.0) mg/dL Acetaminophen < 5.0 L (10.0-30.0) ug/mL 12/17/19 12/18/19 12/18/19 Range/Units 18:18 04:55 04:55 MCH (28-32) pg Seg Neutrophils % (40.0-70.0) % Seg Neuts % (Manual) 81.0 H (40.0-70.0) % Seg Neutrophils # Man 8.7 H (1.8-7.7) K/mm3 Sodium 148 H (137-145) mmol/L Chloride 112.7 H (98-107) mmol/L Carbon Dioxide 20 L (22-30) mmol/L BUN 33 H (7-17) mg/dL Creatinine 4.7 H (0.7-1.2) mg/dL Glucose 111 H (65-100) mg/dL POC Glucose 111 H (70-105) Total Creatine Kinase (30-135) units/L Troponin T (0.00-0.029) ng/mL Albumin (3.9-5) g/dL Cholesterol (50-199) mg/dL LDL Cholesterol Direct (50-130) mg/dL PTH Intact (15-65) pg/mL Salicylates (2.8-20.0) mg/dL Acetaminophen (10.0-30.0) ug/mL 12/18/19 12/18/19 Range/Units 04:55 08:14 MCH (28-32) pg Seg Neutrophils % (40.0-70.0) % Seg Neuts % (Manual) (40.0-70.0) % Seg Neutrophils # Man (1.8-7.7) K/mm3 Sodium (137-145) mmol/L Chloride (98-107) mmol/L Carbon Dioxide (22-30) mmol/L BUN (7-17) mg/dL Creatinine (0.7-1.2) mg/dL Glucose (65-100) mg/dL POC Glucose 124 H (70-105) Total Creatine Kinase (30-135) units/L Troponin T (0.00-0.029) ng/mL Albumin (3.9-5) g/dL Cholesterol (50-199) mg/dL LDL Cholesterol Direct (50-130) mg/dL PTH Intact 141.2 H (15-65) pg/mL Salicylates (2.8-20.0) mg/dL Acetaminophen (10.0-30.0) ug/mL All other labs normal.
--- NOTE | 2019-12-18 12:15 | Progress Note ---
Assessment and Plan Assessment and plan: Patient is a 54 yo AA woman with history of DM type 2, HTN, GERD, OA, [place], functional quadriplegic/bed bound and unspecified mental disorder who presents to [facility] ED with AMS. Patient gives no history but according to chart; brother report that the patient was found down and unresponsive on the bathroom floor with vomit on the side of her face. EMS was notified and upon arrival the patient was found to be in distress and subsequently transported to [facility] for further care and evaluation. Patient found to have acute kidney injury, metabolic acidosis, metabolic encephalopathy, hypernatremia and volume de pletion. Prior review of EMR reveals a Creatinine of 1.5 on 10/07/2017 (which is last Cr in our EMR). I called her brother, Iván, at [phone], no answer and generic answer machine so no message left at 3pm). Main question I have for him, if patient is chronically bedbound then how she get to the bathroom? * pCXR: NAF * CT head: NAF Acute Metabolic encephalopathy Current Visit: Yes Status: Acute Plan to address problem: CT head, neuro check, thyroid panel, supportive care, seizure precautions, aspi ration, precautions, fall precautions. Acute kidney injury due to vasomotor nephropathy, poa Current Visit: Yes Status: Acute Plan to address problem: IV fluid resuscitation therapy, urine electrolytes, renal ultrasound, nephrology consulted in ED, avoid nephrotoxic agents. Elevated Troponin Consult Cardiology ?renal failure related ordered ECHO and repeat troponin Acidosis,metabolic Current Visit: Yes Status: Acute Plan to address problem: IV fluid resuscitation therapy, IV bicarbonate therapy, repeat BMP in a.m. Hypernatremia Current Visit: Yes Status: Acute Plan to address problem: IV fluid resuscitation therapy, nephrology service consulted, repeat BMP in a.m. Volume depletion Current Visit: Yes Status: Acute Plan to address problem: IV fluid resuscitation therapy, monitor urine output every shift, repeat BMP in a.m. Debility Current Visit: Yes Status: Acute Plan to address problem: Physical therapy consulted, case management consulted for discharge planning/placement DVT prophylaxis Current Visit: Yes Status: Acute Plan to address problem: SCD to bilateral lower extremities while in bed, prophylactic heparin Mental health disorder consulted psy team Disposition: continue inpatient care until renal function and hypernatremia stabilizes and Cardiology input History Interval history: Patient was seen and examined. Follow-up on current diagnosis of AMS. Overnight uneventful as no events directly reported to me. Patient is not answering questions appropriately. Imaging, nursing note, chart, labs and old chart reviewed. Discussed with patient. Hospitalist Physical - Physical exam Narrative exam: Gen: WDWN, NAD, Awake, staring, Orientated x 0 HEENT: NCAT, EOMI, PERRL, OP Clear Neck: supple, no adenopathy, no thyromegaly, no JVD CVS/Heart: RRR, normal S1S2, pulses present bilaterally Chest/Lungs: CTA B, Symmetrical chest expansion, good air entry bilaterally GI/Abdomen: soft, NTND, good bowel sounds, no guarding or rebound /Bladder: no suprapubic tenderness, no CVA or paraspinal tenderness Extermity/Skin: no c/c/e, no obvious rash MSK: FROM x 4 Neuro: CN 2-12 grossly intact, no new focal deficits Psych: calm - Constitutional Vitals: Temp Pulse Resp BP Pulse Ox 99.2 F 111 H 18 189/95 99 12/18/19 11:48 12/18/19 11:48 12/18/19 11:48 12/18/19 11:48 12/18/19 11:48 General appearance: Present: mild distress, disheveled Results - Labs CBC & Chem 7: 12/18/19 04:55 12/18/19 04:55 Labs: Laboratory Last Values WBC 10.8 K/mm3 (4.5-11.0) 12/18/19 04:55 RBC 3.80 M/mm3 (3.65-5.03) 12/18/19 04:55 Hgb 10.5 gm/dl (10.1-14.3) 12/18/19 04:55 Hct 31.9 % (30.3-42.9) 12/18/19 04:55 MCV 84 fl (79-97) 12/18/19 04:55 MCH 28 pg (28-32) 12/18/19 04:55 MCHC 33 % (30-34) 12/18/19 04:55 RDW 14.7 % (13.2-15.2) 12/18/19 04:55 Plt Count 258 K/mm3 (140-440) 12/18/19 04:55 Lymph % (Auto) 18.1 % (13.4-35.0) 12/17/19 11:58 [place] % (Auto) Spot Welder Line 12/18/19 04:55 Eos % (Auto) 0.4 % (0.0-4.3) 12/17/19 11:58 Baso % (Auto) 0.7 % (0.0-1.8) 12/17/19 11:58 Lymph # 1.5 K/mm3 (1.2-5.4) 12/17/19 11:58 [place] # 0.6 K/mm3 (0.0-0.8) 12/17/19 11:58 Eos # 0.0 K/mm3 (0.0-0.4) 12/17/19 11:58 Baso # 0.1 K/mm3 (0.0-0.1) 12/17/19 11:58 Add Manual Diff Complete 12/18/19 04:55 Total Counted 100 12/18/19 04:55 Seg Neutrophils % 73.9 % (40.0-70.0) H 12/17/19 11:58 Seg Neuts % (Manual) 81.0 % (40.0-70.0) H 12/18/19 04:55 Band Neutrophils % 0 % 12/18/19 04:55 Lymphocytes % (Manual) 17.0 % (13.4-35.0) 12/18/19 04:55 Reactive Lymphs % (Man) 0 % 12/18/19 04:55 Monocytes % (Manual) 2.0 % (0.0-7.3) 12/18/19 04:55 Eosinophils % (Manual) 0 % (0.0-4.3) 12/18/19 04:55 Basophils % (Manual) 0 % (0.0-1.8) 12/18/19 04:55 Metamyelocytes % 0 % 12/18/19 04:55 Myelocytes % 0 % 12/18/19 04:55 Promyelocytes % 0 % 12/18/19 04:55 Blast Cells % 0 % 12/18/19 04:55 Nucleated RBC % Not Reportable 12/18/19 04:55 Seg Neutrophils # 6.3 K/mm3 (1.8-7.7) 12/17/19 11:58 Seg Neutrophils # Man 8.7 K/mm3 (1.8-7.7) H 12/18/19 04:55 Band Neutrophils # 0.0 K/mm3 12/18/19 04:55 Lymphocytes # (Manual) 1.8 K/mm3 (1.2-5.4) 12/18/19 04:55 Abs React Lymphs (Man) 0.0 K/mm3 12/18/19 04:55 Monocytes # (Manual) 0.2 K/mm3 (0.0-0.8) 12/18/19 04:55 Eosinophils # (Manual) 0.0 K/mm3 (0.0-0.4) 12/18/19 04:55 Basophils # (Manual) 0.0 K/mm3 (0.0-0.1) 12/18/19 04:55 Metamyelocytes # 0.0 K/mm3 12/18/19 04:55 Myelocytes # 0.0 K/mm3 12/18/19 04:55 Promyelocytes # 0.0 K/mm3 12/18/19 04:55 Blast Cells # 0.0 K/mm3 12/18/19 04:55 WBC Morphology Not Reportable 12/18/19 04:55 Hypersegmented Neuts Not Reportable 12/18/19 04:55 Hyposegmented Neuts Not Reportable 12/18/19 04:55 Hypogranular Neuts Not Reportable 12/18/19 04:55 Smudge Cells Not Reportable 12/18/19 04:55 Toxic Granulation Not Reportable 12/18/19 04:55 Toxic Vacuolation Not Reportable 12/18/19 04:55 Dohle Bodies Not Reportable 12/18/19 04:55 Pelger-Huet Anomaly Not Reportable 12/18/19 04:55 Skyler Rods Not Reportable 12/18/19 04:55 Platelet Estimate Consistent w auto 12/18/19 04:55 Clumped Platelets Not Reportable 12/18/19 04:55 Plt Clumps, EDTA Not Reportable 12/18/19 04:55 Large Platelets Not Reportable 12/18/19 04:55 Giant Platelets Not Reportable 12/18/19 04:55 Platelet Satelliting Not Reportable 12/18/19 04:55 Plt Morphology Comment Not Reportable 12/18/19 04:55 RBC Morphology Not Reportable 12/18/19 04:55 Dimorphic RBCs Not Reportable 12/18/19 04:55 Polychromasia Not Reportable 12/18/19 04:55 Hypochromasia Not Reportable 12/18/19 04:55 Poikilocytosis Not Reportable 12/18/19 04:55 Anisocytosis Not Reportable 12/18/19 04:55 Microcytosis Not Reportable 12/18/19 04:55 Macrocytosis Not Reportable 12/18/19 04:55 Spherocytes Not Reportable 12/18/19 04:55 Pappenheimer Bodies Not Reportable 12/18/19 04:55 Sickle Cells Not Reportable 12/18/19 04:55 Target Cells Not Reportable 12/18/19 04:55 Tear Drop Cells Not Reportable 12/18/19 04:55 Ovalocytes Not Reportable 12/18/19 04:55 Helmet Cells Not Reportable 12/18/19 04:55 Singleton-Itmann Bodies Not Reportable 12/18/19 04:55 [place] Rings Not Reportable 12/18/19 04:55 [place] Cells Not Reportable 12/18/19 04:55 Bite Cells Not Reportable 12/18/19 04:55 Crenated Cell Not Reportable 12/18/19 04:55 Elliptocytes Not Reportable 12/18/19 04:55 Acanthocytes (Spur) Not Reportable 12/18/19 04:55 Rouleaux Not Reportable 12/18/19 04:55 Hemoglobin C Crystals Not Reportable 12/18/19 04:55 Schistocytes Rare 12/18/19 04:55 Malaria parasites Not Reportable 12/18/19 04:55 Cheo Bodies Not Reportable 12/18/19 04:55 Hem Pathologist Commnt No 12/18/19 04:55 Sodium 148 mmol/L (137-145) H 12/18/19 04:55 Potassium 4.6 mmol/L (3.6-5.0) 12/18/19 04:55 Chloride 112.7 mmol/L (98-107) H 12/18/19 04:55 Carbon Dioxide 20 mmol/L (22-30) L 12/18/19 04:55 Anion Gap 20 mmol/L 12/18/19 04:55 BUN 33 mg/dL (7-17) H 12/18/19 04:55 Creatinine 4.7 mg/dL (0.7-1.2) H 12/18/19 04:55 Estimated GFR 12 ml/min 12/18/19 04:55 BUN/Creatinine Ratio 7 % 12/18/19 04:55 Glucose 111 mg/dL (65-100) H 12/18/19 04:55 POC Glucose 124 (70-105) H 12/18/19 08:14 Calcium 9.9 mg/dL (8.4-10.2) 12/18/19 04:55 Total Bilirubin 0.30 mg/dL (0.1-1.2) 12/17/19 12:16 AST 31 units/L (5-40) 12/17/19 12:16 ALT 13 units/L (7-56) 12/17/19 12:16 Alkaline Phosphatase 61 units/L (35-129) 12/17/19 12:16 Total Creatine Kinase 432 units/L (30-135) H 12/17/19 12:16 Troponin T 0.105 ng/mL (0.00-0.029) H* 12/17/19 12:16 Total Protein 7.1 g/dL (6.3-8.2) 12/17/19 12:16 Albumin 3.6 g/dL (3.9-5) L 12/17/19 12:16 Albumin/Globulin Ratio 1.0 % 12/17/19 12:16 Triglycerides 122 mg/dL (2-149) 12/17/19 12:16 Cholesterol 220 mg/dL (50-199) H 12/17/19 12:16 LDL Cholesterol Direct 151 mg/dL (50-130) H 12/17/19 12:16 HDL Cholesterol 57 mg/dL (40-59) 12/17/19 12:16 Cholesterol/HDL Ratio 3.85 % 12/17/19 12:16 TSH 1.890 mlU/mL (0.270-4.200) 12/17/19 14:52 Free T4 1.28 ng/dL (0.76-1.46) 12/17/19 14:52 PTH Intact 141.2 pg/mL (15-65) H 12/18/19 04:55 Urine Color Yellow (Yellow) 12/17/19 13:31 Urine Turbidity Slightly-cloudy (Clear) 12/17/19 13:31 Urine pH 5.0 (5.0-7.0) 12/17/19 13:31 Ur Specific [place] 1.013 (1.003-1.030) 12/17/19 13:31 Urine Protein >500 mg/dL (Negative) 12/17/19 13:31 Urine Glucose (UA) 50 mg/dL (Negative) 12/17/19 13:31 Urine Ketones Neg mg/dL (Negative) 12/17/19 13:31 Urine Blood Mod (Negative) 12/17/19 13:31 Urine Nitrite Neg (Negative) 12/17/19 13:31 Urine Bilirubin Neg (Negative) 12/17/19 13:31 Urine Urobilinogen < 2.0 mg/dL (<2.0) 12/17/19 13:31 Ur Leukocyte Esterase Tr (Negative) 12/17/19 13:31 Urine WBC (Auto) 4.0 /HPF (0.0-6.0) 12/17/19 13:31 Urine RBC (Auto) 2.0 /HPF (0.0-6.0) 12/17/19 13:31 U Epithel Cells (Auto) 2.0 /HPF (0-13.0) 12/17/19 13:31 Urine Bacteria (Auto) 1+ /HPF (Negative) 12/17/19 13:31 Urine Mucus Few /HPF 12/17/19 13:31 Salicylates < 0.3 mg/dL (2.8-20.0) L 12/17/19 12:16 Urine Opiates Screen Presumptive positive 12/17/19 13:31 Urine Methadone Screen Presumptive negative 12/17/19 13:31 Acetaminophen < 5.0 ug/mL (10.0-30.0) L 12/17/19 12:16 Ur Barbiturates Screen Presumptive negative 12/17/19 13:31 Ur Phencyclidine Scrn Presumptive negative 12/17/19 13:31 Ur Amphetamines Screen Presumptive negative 12/17/19 13:31 U Benzodiazepines Scrn Presumptive negative 12/17/19 13:31 Urine Cocaine Screen Presumptive negative 12/17/19 13:31 U Marijuana (THC) Screen Presumptive negative 12/17/19 13:31 Drugs of Abuse Note Disclamer 12/17/19 13:31 Plasma/Serum Alcohol < 0.01 % (0-0.07) 12/17/19 11:58 Active Medications - Current Medications Current Medications: Generic Name Dose Route Start Last Admin Trade Name Freq PRN Reason Stop Dose Admin Acetaminophen 650 mg 12/17/19 13:56 Tylenol PO Q4H PRN Pain MILD(1-3)/Fever >100.5/CALIX Albuterol 2.5 mg 12/17/19 13:56 Proventil IH Q4HRT PRN Shortness Of Breath Amlodipine Besylate 10 mg 12/18/19 11:00 12/18/19 11:47 Amlodipine PO 10 mg QDAY JESSICA Administration Clonidine HCl 0.3 mg 12/17/19 15:00 12/17/19 15:40 Catapres-Tts Patch TD 0.3 mg QWEEK JESSICA Administration Dextrose 50 ml 12/17/19 14:06 D50w (25gm) Syringe IV Q30MIN PRN Hypoglycemia Protocol Hydralazine HCl 10 mg 12/17/19 17:09 12/18/19 11:46 Apresoline IV 10 mg Q6HR PRN Administration Hypertension Sodium Chloride 1,000 mls @ 75 mls/hr 12/17/19 15:00 12/17/19 20:28 Nacl 0.45% 1000 Ml IV 75 mls/hr DIRECT JESSICA Administration Insulin Human Lispro 0 unit 12/17/19 18:00 12/18/19 07:30 Humalog SUB-Q Not Given Q6HR JESSICA Protocol Metoprolol Tartrate 50 mg 12/18/19 11:00 12/18/19 11:54 Metoprolol PO 50 mg BID JESSICA Administration Ondansetron HCl 4 mg 12/17/19 13:56 Zofran IV Q8H PRN Nausea And Vomiting Pantoprazole Sodium 40 mg 12/18/19 10:00 12/18/19 11:47 Protonix PO 40 mg DAILY JESSICA Administration Polyethylene Glycol 17 gm 12/17/19 16:00 12/18/19 09:32 Miralax 3350 PO Not Given QDAY JESSICA Sodium Chloride 10 ml 12/17/19 22:00 12/18/19 09:33 Sodium Chloride Flush Syringe 10 Ml IV 10 ml BID JESSICA Administration Sodium Chloride 10 ml 12/17/19 13:56 Sodium Chloride Flush Syringe 10 Ml IV PRN PRN LINE FLUSH
--- NOTE | 2019-12-18 14:55 | Progress Note ---
Assessment and Plan 1. Acute kidney injury: Suspect vasomotor GIGI superimposed on CKD. Worsening CKD is not ruled out. History is very limited. No hypotension. Creatinine was 1.5 (10/2017). Current creatinine level is not showing much improvement, now 4.7 from 4.8. Urine studies and Renal US ordered 12/17 and still pending. IV fluids decreased to 50 cc/hr. Monitor renal function. Renal prognosis is guarded. Avoid nephrotoxic agents. Meds dosage based on GFR. 2. FEN: Metabolic acidosis, monitor. Mild hypernatremia, has worsened to 148 from 146, 1/2 NS decreased to 50 cc/hr, monitor. Monitor lytes. 3. Metabolic encephalopathy: Head CT negative. U.tox positive for Opiates. 4. Hypoglycemia: Blood sugar 59 per EMS arrival. Received dextrose in the ED. Blood sugars appear to be controlled, last POC 111. Currently NPO. 5. Proteinuria: Likely diabetic nephropathy. 6. Elevated troponin. ?from GIGI on CKD. 7. Hypertension: Patient will not be able to swallow pills at this time. Clonidine patch. Hypertensive today, 12/18. Fluid rate decreased and patient started on Amlodipine and Metoprolol, 12/18. Subjective Date of service: 12/18/19 Interval history: Patient seen and examined at the bedside. No family is present in the room. Patient awake and only answering "yes" to each question or not responding at all. Objective - Exam Narrative Exam: General appearance: well-developed, well-nourished, appears stated age EENT: ATNC, PERRL Neck: Present: trachea midline Respiratory: Clear to Ascultation Heart: regular, S1S2, no murmurs Gastrointestinal: Present: normoactive bowel sounds. Absent: tenderness, distended Integumentary: no rash, warm and dry Neurologic: responded to her name, but answering "yes" to every question or not responding verbally at all Musculoskeletal: Present: other (no edema) - Vital Signs Vital signs: Vital Signs - 12hr 12/18/19 12/18/19 12/18/19 03:44 09:49 11:46 Temperature 98.0 F Pulse Rate 114 H Respiratory 20 Rate Blood Pressure 221/106 189/96 Blood Pressure [Left] O2 Sat by Pulse 100 Oximetry 12/18/19 11:48 Temperature 99.2 F Pulse Rate 111 H Respiratory 18 Rate Blood Pressure Blood Pressure 189/95 [Left] O2 Sat by Pulse 99 Oximetry - Lab 12/18/19 04:55 12/18/19 04:55 Most recent lab results Calcium 9.9 mg/dL (8.4-10.2) 12/18/19 04:55 Medications & Allergies - Medications Allergies/Adverse Reactions: Allergies doxycycline Allergy (Verified 08/26/18 08:26) Anaphylaxis erythromycin base Allergy (Verified 08/26/18 08:26) Anaphylaxis Tetracyclines Allergy (Verified 08/26/18 08:26) Anaphylaxis Home Medications: Home Medications Medication Instructions Recorded Confirmed Last Taken Type Insulin NPH/Regular [Novolin 70/30] 15 unit SQ QPM #1 vial 10/22/16 11/12/16 10/22/16 Rx Insulin NPH/Regular [Novolin 70/30] 45 unit SQ QAM #1 vial 10/22/16 11/12/16 10/22/16 Rx Omeprazole 40 mg PO DAILY 10/22/16 11/12/16 11/11/16 History Syringe-Needle,Insulin,0.5 ml 1 each MC BID #1 box 10/22/16 11/12/16 10/22/16 Rx [Advocate Syringes] polyethylene glycoL 3350 [Miralax 17 gm PO QDAY #30 packet 10/06/17 Unknown Rx 3350] Cephalexin [Keflex] 500 mg PO BID #20 capsule 07/21/18 Unknown Rx Ibuprofen [Motrin 600 MG tab] 600 mg PO Q8H PRN #30 tablet 07/21/18 Unknown Rx Sulfamethoxazole/Trimethoprim 1 each PO BID 10 Days #20 tablet 07/21/18 Unknown Rx [Bactrim DS TAB] Chlorhexidine Gluconate [Hibiclens] 10 ml TP BID #240 liquid 08/25/18 Unknown Rx Ketorolac [Toradol] 10 mg PO Q6H PRN #15 tablet 08/25/18 Unknown Rx Sulfamethoxazole/Trimethoprim 1 each PO BID #20 tablet 08/25/18 Unknown Rx [Bactrim DS TAB] cephALEXin [Keflex] 500 mg PO Q6HR #40 capsule 08/25/18 Unknown Rx Active Medications: Generic Name Dose Route Start Last Admin Trade Name Freq PRN Reason Stop Dose Admin Acetaminophen 650 mg 12/17/19 13:56 Tylenol PO Q4H PRN Pain MILD(1-3)/Fever >100.5/CALIX Albuterol 2.5 mg 12/17/19 13:56 Proventil IH Q4HRT PRN Shortness Of Breath Amlodipine Besylate 10 mg 12/18/19 11:00 12/18/19 11:47 Amlodipine PO 10 mg QDAY JESSICA Administration Clonidine HCl 0.3 mg 12/17/19 15:00 12/17/19 15:40 Catapres-Tts Patch TD 0.3 mg QWEEK JESSICA Administration Dextrose 50 ml 12/17/19 14:06 D50w (25gm) Syringe IV Q30MIN PRN Hypoglycemia Protocol Hydralazine HCl 10 mg 12/17/19 17:09 12/18/19 11:46 Apresoline IV 10 mg Q6HR PRN Administration Hypertension Sodium Chloride 1,000 mls @ 75 mls/hr 12/17/19 15:00 12/17/19 20:28 Nacl 0.45% 1000 Ml IV 75 mls/hr DIRECT JESSICA Administration Insulin Human Lispro 0 unit 12/17/19 18:00 12/18/19 13:52 Humalog SUB-Q Not Given Q6HR [facility] Protocol Metoprolol Tartrate 50 mg 12/18/19 11:00 12/18/19 11:54 Metoprolol PO 50 mg BID JESSICA Administration Ondansetron HCl 4 mg 12/17/19 13:56 Zofran IV Q8H PRN Nausea And Vomiting Pantoprazole Sodium 40 mg 12/18/19 10:00 12/18/19 11:47 Protonix PO 40 mg DAILY JESSICA Administration Polyethylene Glycol 17 gm 12/17/19 16:00 12/18/19 09:32 Miralax 3350 PO Not Given QDAY JESSICA Sodium Chloride 10 ml 12/17/19 22:00 12/18/19 09:33 Sodium Chloride Flush Syringe 10 Ml IV 10 ml BID JESSICA Administration Sodium Chloride 10 ml 12/17/19 13:56 Sodium Chloride Flush Syringe 10 Ml IV PRN PRN LINE FLUSH
--- NOTE | 2019-12-18 15:57 | Consultation ---
History of Present Illness Consult date: 12/18/19 Requesting physician: TERI PARSON Consult reason: elevated troponin History of present illness: The patient is a 54 yo woman with history of HTN, DM, functional quadriplegic/bed bound and unspecified mental disorder.She is previously unknown to our practice. She is alert with no apparent distress noted but only responds to questions with "no" and thus HPI is obtained from the chart. According to chart, pt's brother reported that the patient was found down and unresponsive on the bathroom floor with vomit on the side of her face. Patient has subsequently been diagnosed with acute kidney injury, metabolic acidosis, metabolic encephalopathy, hypernatremia and volume depletion. Cardiology has been consulted for elevated troponin. Past History Past Medical History: arthritis, diabetes, GERD, hypertension, other (See HPI) Past Surgical History: hysterectomy, tonsillectomy Social history: single Family history: diabetes, hypertension Medications and Allergies Allergies Allergy/AdvReac Type Severity Reaction Status Date / Time doxycycline Allergy Anaphylaxis Verified 08/26/18 08:26 erythromycin base Allergy Anaphylaxis Verified 08/26/18 08:26 Tetracyclines Allergy Anaphylaxis Verified 08/26/18 08:26 Home Medications Medication Instructions Recorded Confirmed Last Taken Type Insulin NPH/Regular [Novolin 70/30] 15 unit SQ QPM #1 vial 10/22/16 11/12/16 10/22/16 Rx Insulin NPH/Regular [Novolin 70/30] 45 unit SQ QAM #1 vial 10/22/16 11/12/16 10/22/16 Rx Omeprazole 40 mg PO DAILY 10/22/16 11/12/16 11/11/16 History Syringe-Needle,Insulin,0.5 ml 1 each MC BID #1 box 10/22/16 11/12/16 10/22/16 Rx [Advocate Syringes] polyethylene glycoL 3350 [Miralax 17 gm PO QDAY #30 packet 10/06/17 Unknown Rx 3350] Cephalexin [Keflex] 500 mg PO BID #20 capsule 07/21/18 Unknown Rx Ibuprofen [Motrin 600 MG tab] 600 mg PO Q8H PRN #30 tablet 07/21/18 Unknown Rx Sulfamethoxazole/Trimethoprim 1 each PO BID 10 Days #20 tablet 07/21/18 Unknown Rx [Bactrim DS TAB] Chlorhexidine Gluconate [Hibiclens] 10 ml TP BID #240 liquid 08/25/18 Unknown Rx Ketorolac [Toradol] 10 mg PO Q6H PRN #15 tablet 08/25/18 Unknown Rx Sulfamethoxazole/Trimethoprim 1 each PO BID #20 tablet 08/25/18 Unknown Rx [Bactrim DS TAB] cephALEXin [Keflex] 500 mg PO Q6HR #40 capsule 08/25/18 Unknown Rx Active Meds: Active Medications Acetaminophen (Tylenol) 650 mg PO Q4H PRN PRN Reason: Pain MILD(1-3)/Fever >100.5/CALIX Albuterol (Proventil) 2.5 mg IH Q4HRT PRN PRN Reason: Shortness Of Breath Amlodipine Besylate (Amlodipine) 10 mg PO QDAY COUNTS INCLUDE 234 BEDS AT THE [facility] Last Admin: 12/18/19 11:47 Dose: 10 mg Documented by: Clonidine HCl (Catapres-Tts Patch) 0.3 mg TD QWEEK COUNTS INCLUDE 234 BEDS AT THE [facility] Last Admin: 12/17/19 15:40 Dose: 0.3 mg Documented by: Dextrose (D50w (25gm) Syringe) 50 ml IV Q30MIN PRN; Protocol PRN Reason: Hypoglycemia Hydralazine HCl (Apresoline) 10 mg IV Q6HR PRN PRN Reason: Hypertension Last Admin: 12/18/19 11:46 Dose: 10 mg Documented by: Sodium Chloride (Nacl 0.45% 1000 Ml) 1,000 mls @ 50 mls/hr IV DIRECT COUNTS INCLUDE 234 BEDS AT THE [facility] Last Admin: 12/17/19 20:28 Dose: 75 mls/hr Documented by: Insulin Human Lispro (Humalog) 0 unit SUB-Q Q6HR COUNTS INCLUDE 234 BEDS AT THE [facility]; Protocol Last Admin: 12/18/19 13:52 Dose: Not Given Documented by: Metoprolol Tartrate (Metoprolol) 50 mg PO BID COUNTS INCLUDE 234 BEDS AT THE [facility] Last Admin: 12/18/19 11:54 Dose: 50 mg Documented by: Ondansetron HCl (Zofran) 4 mg IV Q8H PRN PRN Reason: Nausea And Vomiting Pantoprazole Sodium (Protonix) 40 mg PO DAILY COUNTS INCLUDE 234 BEDS AT THE [facility] Last Admin: 12/18/19 11:47 Dose: 40 mg Documented by: Polyethylene Glycol (Miralax 3350) 17 gm PO QDAY COUNTS INCLUDE 234 BEDS AT THE [facility] Last Admin: 12/18/19 09:32 Dose: Not Given Documented by: Sodium Chloride (Sodium Chloride Flush Syringe 10 Ml) 10 ml IV BID COUNTS INCLUDE 234 BEDS AT THE [facility] Last Admin: 12/18/19 09:33 Dose: 10 ml Documented by: Sodium Chloride (Sodium Chloride Flush Syringe 10 Ml) 10 ml IV PRN PRN PRN Reason: LINE FLUSH Review of Systems ROS unobtainable: due to mental status Physical Examination Vital Signs Pulse Resp BP Pulse Ox 108 H 18 190/163 100 12/17/19 11:30 12/17/19 11:30 12/17/19 11:30 12/17/19 11:30 General appearance: no acute distress HEENT: Positive: PERRL, Normocephaly, Mucus Membranes Moist Neck: Positive: neck supple, trachea midline Cardiac: Positive: Reg Rate and Rhythm, S1/S2 Lungs: Positive: Decreased Breath Sounds Neuro: Positive: Other (no focal deficits noted) Abdomen: Negative: Tender Musculoskeletal: No Pain Extremities: Absent: edema Results 12/18/19 04:55 12/18/19 04:55 CBC 12/18/19 Range/Units 04:55 WBC 10.8 (4.5-11.0) K/mm3 RBC 3.80 (3.65-5.03) M/mm3 Hgb 10.5 (10.1-14.3) gm/dl Hct 31.9 (30.3-42.9) % Plt Count 258 (140-440) K/mm3 Comprehensive Metabolic Panel 12/18/19 Range/Units 04:55 Sodium 148 H (137-145) mmol/L Potassium 4.6 (3.6-5.0) mmol/L Chloride 112.7 H (98-107) mmol/L Carbon Dioxide 20 L (22-30) mmol/L BUN 33 H (7-17) mg/dL Creatinine 4.7 H (0.7-1.2) mg/dL Glucose 111 H (65-100) mg/dL Calcium 9.9 (8.4-10.2) mg/dL - Imaging and Cardiology Echo: pending EKG: report reviewed, image reviewed EKG interpretations - Telemetry EKG Rhythm: Sinus Rhythm - EKG Sinus rhythms and dysrhythmias: sinus rhythm Assessment and Plan Trop elevated x 1 set. Pt in no apparent distress, ECG with no acute ischemic changes. Suspect CE elevation is secondary to ARF. Cont to trend Ирина and f/u ECG in AM. Initiate ASA. Lipid panel reviewed - initiate statin. Obtain echo. Optimize HR and BPs - increase lopressor. Will follow. The patient has been seen in conjunction with Dr. Calvert who agrees with the assessment and plan of care. - Patient Problems (1) NSTEMI (non-ST elevated myocardial infarction) Current Visit: Yes Status: Acute Plan to address problem: suspect type II (2) AMS (altered mental status) Current Visit: Yes Status: Acute (3) Acute kidney injury Current Visit: Yes Status: Acute (4) Dehydration Current Visit: Yes Status: Acute (5) Hypernatremia Current Visit: Yes Status: Acute (6) HTN (hypertension) Current Visit: Yes Status: Chronic (7) Diabetes Current Visit: Yes Status: Chronic (8) Functional quadriplegia Current Visit: Yes Status: Chronic
[2019-12-18] MEDS: METOPROLOL TARTRATE 100 MG TAB PO SCH ×2 (22:55→23:12)
[2019-12-18] MEDS: SODIUM CHLORIDE 0.45% 1000 ML 1,000 ML IV SCH (23:13)
[2019-12-19] MEDS: METOPROLOL TARTRATE 100 MG TAB PO SCH ×3 (00:03→23:00)
[2019-12-19] MEDS: INSULIN LISPRO 100 UNIT/ML SUB-Q SCH ×4 (01:06→17:34)
--- NOTE | 2019-12-19 07:37 | Progress Note ---
Objective - Vital Signs Vital signs: Vital Signs - 12hr 12/18/19 12/19/19 23:55 04:00 Temperature 98.3 F 98.2 F Pulse Rate 85 80 Respiratory 18 18 Rate Blood Pressure 178/84 Blood Pressure 169/86 [Left] O2 Sat by Pulse 97 98 Oximetry - Lab 12/18/19 04:55 12/18/19 04:55 Most recent lab results Calcium 9.9 mg/dL (8.4-10.2) 12/18/19 04:55 Medications & Allergies - Medications Allergies/Adverse Reactions: Allergies doxycycline Allergy (Verified 08/26/18 08:26) Anaphylaxis erythromycin base Allergy (Verified 08/26/18 08:26) Anaphylaxis Tetracyclines Allergy (Verified 08/26/18 08:26) Anaphylaxis Home Medications: Home Medications Medication Instructions Recorded Confirmed Last Taken Type Insulin NPH/Regular [Novolin 70/30] 15 unit SQ QPM #1 vial 10/22/16 11/12/16 10/22/16 Rx Insulin NPH/Regular [Novolin 70/30] 45 unit SQ QAM #1 vial 10/22/16 11/12/16 10/22/16 Rx Omeprazole 40 mg PO DAILY 10/22/16 11/12/16 11/11/16 History Syringe-Needle,Insulin,0.5 ml 1 each MC BID #1 box 10/22/16 11/12/16 10/22/16 Rx [[facility] Syringes] polyethylene glycoL 3350 [Miralax 17 gm PO QDAY #30 packet 10/06/17 Unknown Rx 3350] Cephalexin [Keflex] 500 mg PO BID #20 capsule 07/21/18 Unknown Rx Ibuprofen [Motrin 600 MG tab] 600 mg PO Q8H PRN #30 tablet 07/21/18 Unknown Rx Sulfamethoxazole/Trimethoprim 1 each PO BID 10 Days #20 tablet 07/21/18 Unknown Rx [Bactrim DS TAB] Chlorhexidine Gluconate [Hibiclens] 10 ml TP BID #240 liquid 08/25/18 Unknown Rx Ketorolac [Toradol] 10 mg PO Q6H PRN #15 tablet 08/25/18 Unknown Rx Sulfamethoxazole/Trimethoprim 1 each PO BID #20 tablet 08/25/18 Unknown Rx [Bactrim DS TAB] cephALEXin [Keflex] 500 mg PO Q6HR #40 capsule 08/25/18 Unknown Rx Active Medications: Generic Name Dose Route Start Last Admin Trade Name Freq PRN Reason Stop Dose Admin Acetaminophen 650 mg 12/17/19 13:56 Tylenol PO Q4H PRN Pain MILD(1-3)/Fever >100.5/CALIX Albuterol 2.5 mg 12/17/19 13:56 Proventil IH Q4HRT PRN Shortness Of Breath Amlodipine Besylate 10 mg 12/18/19 11:00 12/18/19 11:47 Amlodipine PO 10 mg QDAY JESSICA Administration Aspirin 81 mg 12/19/19 10:00 Baby Aspirin PO QDAY JESSICA Atorvastatin Calcium 40 mg 12/18/19 22:00 12/19/19 00:02 Lipitor PO 40 mg QHS JESSICA Administration Clonidine HCl 0.3 mg 12/17/19 15:00 12/17/19 15:40 Catapres-Tts Patch TD 0.3 mg QWEEK JESSICA Administration Dextrose 50 ml 12/17/19 14:06 D50w (25gm) Syringe IV Q30MIN PRN Hypoglycemia Protocol Hydralazine HCl 10 mg 12/17/19 17:09 12/18/19 11:46 Apresoline IV 10 mg Q6HR PRN Administration Hypertension Sodium Chloride 1,000 mls @ 50 mls/hr 12/17/19 15:00 12/18/19 23:13 Nacl 0.45% 1000 Ml IV 75 mls/hr DIRECT JESSICA Administration Insulin Human Lispro 0 unit 12/17/19 18:00 12/19/19 06:45 Humalog SUB-Q Not Given Q6HR JESSICA Protocol Metoprolol Tartrate 100 mg 12/18/19 22:00 12/19/19 00:03 Metoprolol PO 100 mg BID JESSICA Administration Ondansetron HCl 4 mg 12/17/19 13:56 Zofran IV Q8H PRN Nausea And Vomiting Pantoprazole Sodium 40 mg 12/18/19 10:00 12/18/19 11:47 Protonix PO 40 mg DAILY JESSICA Administration Polyethylene Glycol 17 gm 12/17/19 16:00 12/18/19 09:32 Miralax 3350 PO Not Given QDAY JESSICA Sodium Chloride 10 ml 12/17/19 22:00 12/18/19 22:57 Sodium Chloride Flush Syringe 10 Ml IV 10 ml BID JESSICA Administration Sodium Chloride 10 ml 12/17/19 13:56 Sodium Chloride Flush Syringe 10 Ml IV PRN PRN LINE FLUSH
[2019-12-19] MEDS ORDERED: ASPIRIN 81 MG TAB CHEW PO SCH (10:00)
[2019-12-19] MEDS: PANTOPRAZOLE 40 MG TAB PO SCH (10:51)
[2019-12-19] MEDS: amLODIPine 10 MG TAB PO SCH (10:51)
[2019-12-19] MEDS: POLYETHYLENE GLYCOL 3350 17 GM POWDER PO SCH (10:52)
[2019-12-19 10:57] LABS: Calcium 9.7 mg/dL (8.4-10.2)
--- NOTE | 2019-12-19 11:35 | Progress Note ---
Assessment and Plan Trop elevated x 1 set. Pt in no apparent distress, ECG with no acute ischemic changes. Suspect CE elevation is secondary to ARF. Cont to trend Ирина. tte reviewed - EF 55-60%, no significant abnormalities. Cont present cardiac management. Plan for lexiscan MPI stress test in AM. NPO after MN. The patient has been seen in conjunction with Dr. Calvert who agrees with the assessment and plan of care. - Patient Problems (1) NSTEMI (non-ST elevated myocardial infarction) Current Visit: Yes Status: Acute Plan to address problem: suspect type II (2) AMS (altered mental status) Current Visit: Yes Status: Acute (3) Acute kidney injury Current Visit: Yes Status: Acute (4) Dehydration Current Visit: Yes Status: Acute (5) Hypernatremia Current Visit: Yes Status: Acute (6) HTN (hypertension) Current Visit: Yes Status: Chronic (7) Diabetes Current Visit: Yes Status: Chronic (8) Functional quadriplegia Current Visit: Yes Status: Chronic Subjective Date of service: 12/19/19 Principal diagnosis: AMS Interval history: pt sitting up in bed, brushing her teeth, appears more coherent today, no current complaints. in SR on telemetry. Objective Last Vital Signs Temp 98.2 F 12/19/19 04:00 Pulse 80 12/19/19 04:00 Resp 18 12/19/19 04:00 BP 169/86 12/19/19 04:00 Pulse Ox 98 12/19/19 04:00 - Physical Examination General: No Apparent Distress HEENT: Positive: PERRL, Normocephaly, Mucus Membranes Moist Neck: Positive: neck supple, trachea midline Cardiac: Positive: Reg Rate and Rhythm, S1/S2 Lungs: Positive: Decreased Breath Sounds Neuro: Positive: Other (no focal deficits noted) Abdomen: Negative: Tender Musculoskeletal: No Pain Extremities: Absent: edema - Labs and Meds Comprehensive Metabolic Panel 12/19/19 Range/Units 10:13 Sodium 145 (137-145) mmol/L Potassium 4.7 (3.6-5.0) mmol/L Chloride 108.8 H (98-107) mmol/L Carbon Dioxide 19 L (22-30) mmol/L BUN 36 H (7-17) mg/dL Creatinine 3.9 H (0.7-1.2) mg/dL Glucose 97 (65-100) mg/dL Calcium 9.7 (8.4-10.2) mg/dL - Imaging and Cardiology EKG: report reviewed, image reviewed Echo: report reviewed - Telemetry EKG Rhythm: Sinus Rhythm - EKG Sinus rhythms and dysrhythmias: sinus rhythm
--- NOTE | 2019-12-19 12:28 | Ultrasound Report ---
ULTRASOUND RENAL INDICATION: Acute renal insufficiency. COMPARISON: CT abdomen 10/06/2017. FINDINGS: RIGHT KIDNEY: Size: 8.6 cm. Echogenicity: Increased. Cortical thickness: Normal. Stones: None. Hydronephrosis: None. Cyst or mass: None. LEFT KIDNEY: Size: 8.2 cm. Echogenicity: Increased. Cortical thickness: Normal. Stones: None. Hydronephrosis: None. Cyst or mass: None. Urinary Bladder: Distended. Free Fluid: None. Additional Findings: None. IMPRESSION 1. No acute sonographic abnormality of the kidneys. 2. The bladder is distended. 3. Increased echogenicity throughout the cortex of both kidneys can be seen in the setting of medical renal disease. Signer Name: Juarez Sorto MD Signed: 12/19/2019 12:23 PM Workstation Name: [id number]
--- NOTE | 2019-12-19 13:09 | Progress Note ---
Subjective - Reason for Consult Consult date: 12/19/19 Reason for consult: Altered mental status - Chief Complaint Chief complaint: During my interview with the patient today, she was sitting on side of the bed. She was dressed appropriately. She makes fair eye contact. She is a/o x 2 to 3. She says she was admitted into the hospital because her "brother and mother don't want me in the house." She says her mother "has never cared about me since I was born." The patient says she see's a "psychiatrist for schizophrenia." She doesn't remember what medications she was on. She says "the power of others is the reason I'm here." When asked what was she speaking of, the patient replied "I do not wish to elaborate." She says her mood is "okay." She's looking over at the wall. When asking the patient what she was looking at, she replied, "I have to look at you to talk to you. I see you like eye contact." The patient denies SI/HI, and states she was "a long long time ago." She denies hallucinations of any kind. She denies any drug or alcohol use. The patient states to me, "I want to know who gave my brother permission to call up here." REVIEW OF SYSTEMS Constitutional: Negative for weight loss ENT: Negative for stridor Respiratory: Negative for cough or hemoptysis All other systems reviewed and are negative MSE Appearance: Awake. Dressed appropriately Behavior: calm and cooerpative Mood: "okay" Affect: Congruent Thought Process: goal directed Speech: normal tone and pace Thought Content Suicidal: Denies Homicidal: Denies Hallucinations: Denies Delusions: Denies Consciousness: Alert Cognition/Memory: Limited Insight/Judgment: Limited RECOMMENDATIONS MEDICATIONS: Geodon 10mg IM q4h prn agitation Risks, benefits and alternatives of medications discussed with the patient, questions answered and consent obtained from patient. PSYCHOTHERAPY: Supportive psychotherapy provided MEDICAL: Per primary team DELIRIUM PRECAUTIONS: Please re-orient patient frequently, keep lights on during the day, and minimize benzodiazepines and opiates as these medications could worsen patient's confusion. LEAD MANUFACTURING TECHNICIAN: Defer to primary DISPOSITION: No indication for acute inpatient psychiatric hospitalization at this time. The patient may discharge once medically cleared. LEGAL STATUS: Voluntary FOLLOW-UP: Will follow Mental Status Exam - Vital signs Last Vital Signs Temp 98.1 F 12/19/19 12:05 Pulse 80 12/19/19 04:00 Resp 18 12/19/19 12:05 BP 165/97 12/19/19 12:05 Pulse Ox 98 12/19/19 04:00
[2019-12-19] MEDS ORDERED: NIFEdipine XL 60 MG TAB PO SCH (16:00)
--- NOTE | 2019-12-19 16:00 | Progress Note ---
Assessment and Plan Assessment and plan: 54 yo AA woman with history of DM type 2, HTN, GERD, OA, VT, functional quadriplegic/bed bound and unspecified mental disorder who presents to [facility] ED with AMS. Patient gives no history but according to chart; brother report that the patient was found down and unresponsive on the bathroom floor with vomit on the side of her face. EMS was notified and upon arrival the patient was found to be in distress and subsequently transported to [facility] for further care and evaluation. Patient found to have acute kidney injury, metabolic acidosis, metabolic encephalopathy, hypernatremia and volume depletion. Prior review of EMR reveals a Creatinine of 1.5 on 10/07/2017 (which is last Cr in our EMR). -Patient admits that she does not drink enough water, she gets dehydrated easily * pCXR: NAF * CT head: NAF Acute Metabolic encephalopathy Likely due to dehydration, now resolving Acute kidney injury due to vasomotor nephropathy superimposed upon chronic k idney disease, poa Improved with IV fluids, this is possibly the patient's new baseline Elevated Troponin Likely elevated in setting of chronic kidney disease. Plan for stress test in a.m. Cardiology input appreciated Acidosis,metabolic Improving with IV fluids Hypernatremia Improving with IV fluids Volume depletion Continue IV fluids Debility , case management consulted for discharge planning/placement DVT prophylaxis SCD to bilateral lower extremities while in bed, prophylactic heparin Mental health disorder consulted psy team Disposition likely home tomorrow if continues to improve, after stress test has been done. History Interval history: Review of systems Constitutional: No fevers, no malaise, no joint pains CVS: No chest pain, no orthopnea, no dyspnea on exertion, no pedal edema GI: No abdominal pain, no diarrhea, no vomiting, no constipation Respiratory: no wheezing, no coughing Hospitalist Physical - Physical exam Narrative exam: General.: Appears well, no distress, nontoxic HEENT: Moist mucous membranes, extraocular muscles intact, no lymphadenopathy Neck: supple Cardiac: S1-S2 heard Lungs: clear to auscultation bilaterally Abdomen: soft , nontender, nondistended, bowel sounds positive Extremities: no edema clubbing or cyanosis Skin: no rash or lesions Neurologic: no gross focal deficits Psych: calm, and cooperative - Constitutional Vitals: Temp Pulse Resp BP Pulse Ox 98.1 F 75 18 165/97 98 12/19/19 12:05 12/19/19 14:12 12/19/19 12:05 12/19/19 12:05 12/19/19 04:00 General appearance: Present: no acute distress Results - Labs CBC & Chem 7: 12/18/19 04:55 12/19/19 10:13 Labs: Laboratory Last Values WBC 10.8 K/mm3 (4.5-11.0) 12/18/19 04:55 RBC 3.80 M/mm3 (3.65-5.03) 12/18/19 04:55 Hgb 10.5 gm/dl (10.1-14.3) 12/18/19 04:55 Hct 31.9 % (30.3-42.9) 12/18/19 04:55 MCV 84 fl (79-97) 12/18/19 04:55 MCH 28 pg (28-32) 12/18/19 04:55 MCHC 33 % (30-34) 12/18/19 04:55 RDW 14.7 % (13.2-15.2) 12/18/19 04:55 Plt Count 258 K/mm3 (140-440) 12/18/19 04:55 Lymph % (Auto) 18.1 % (13.4-35.0) 12/17/19 11:58 [place] % (Auto) Cemetery Manager 12/18/19 04:55 Eos % (Auto) 0.4 % (0.0-4.3) 12/17/19 11:58 Baso % (Auto) 0.7 % (0.0-1.8) 12/17/19 11:58 Lymph # 1.5 K/mm3 (1.2-5.4) 12/17/19 11:58 [place] # 0.6 K/mm3 (0.0-0.8) 12/17/19 11:58 Eos # 0.0 K/mm3 (0.0-0.4) 12/17/19 11:58 Baso # 0.1 K/mm3 (0.0-0.1) 12/17/19 11:58 Add Manual Diff Complete 12/18/19 04:55 Total Counted 100 12/18/19 04:55 Seg Neutrophils % 73.9 % (40.0-70.0) H 12/17/19 11:58 Seg Neuts % (Manual) 81.0 % (40.0-70.0) H 12/18/19 04:55 Band Neutrophils % 0 % 12/18/19 04:55 Lymphocytes % (Manual) 17.0 % (13.4-35.0) 12/18/19 04:55 Reactive Lymphs % (Man) 0 % 12/18/19 04:55 Monocytes % (Manual) 2.0 % (0.0-7.3) 12/18/19 04:55 Eosinophils % (Manual) 0 % (0.0-4.3) 12/18/19 04:55 Basophils % (Manual) 0 % (0.0-1.8) 12/18/19 04:55 Metamyelocytes % 0 % 12/18/19 04:55 Myelocytes % 0 % 12/18/19 04:55 Promyelocytes % 0 % 12/18/19 04:55 Blast Cells % 0 % 12/18/19 04:55 Nucleated RBC % Not Reportable 12/18/19 04:55 Seg Neutrophils # 6.3 K/mm3 (1.8-7.7) 12/17/19 11:58 Seg Neutrophils # Man 8.7 K/mm3 (1.8-7.7) H 12/18/19 04:55 Band Neutrophils # 0.0 K/mm3 12/18/19 04:55 Lymphocytes # (Manual) 1.8 K/mm3 (1.2-5.4) 12/18/19 04:55 Abs React Lymphs (Man) 0.0 K/mm3 12/18/19 04:55 Monocytes # (Manual) 0.2 K/mm3 (0.0-0.8) 12/18/19 04:55 Eosinophils # (Manual) 0.0 K/mm3 (0.0-0.4) 12/18/19 04:55 Basophils # (Manual) 0.0 K/mm3 (0.0-0.1) 12/18/19 04:55 Metamyelocytes # 0.0 K/mm3 12/18/19 04:55 Myelocytes # 0.0 K/mm3 12/18/19 04:55 Promyelocytes # 0.0 K/mm3 12/18/19 04:55 Blast Cells # 0.0 K/mm3 12/18/19 04:55 WBC Morphology Not Reportable 12/18/19 04:55 Hypersegmented Neuts Not Reportable 12/18/19 04:55 Hyposegmented Neuts Not Reportable 12/18/19 04:55 Hypogranular Neuts Not Reportable 12/18/19 04:55 Smudge Cells Not Reportable 12/18/19 04:55 Toxic Granulation Not Reportable 12/18/19 04:55 Toxic Vacuolation Not Reportable 12/18/19 04:55 Dohle Bodies Not Reportable 12/18/19 04:55 Pelger-Huet Anomaly Not Reportable 12/18/19 04:55 Skyler Rods Not Reportable 12/18/19 04:55 Platelet Estimate Consistent w auto 12/18/19 04:55 Clumped Platelets Not Reportable 12/18/19 04:55 Plt Clumps, EDTA Not Reportable 12/18/19 04:55 Large Platelets Not Reportable 12/18/19 04:55 Giant Platelets Not Reportable 12/18/19 04:55 Platelet Satelliting Not Reportable 12/18/19 04:55 Plt Morphology Comment Not Reportable 12/18/19 04:55 RBC Morphology Not Reportable 12/18/19 04:55 Dimorphic RBCs Not Reportable 12/18/19 04:55 Polychromasia Not Reportable 12/18/19 04:55 Hypochromasia Not Reportable 12/18/19 04:55 Poikilocytosis Not Reportable 12/18/19 04:55 Anisocytosis Not Reportable 12/18/19 04:55 Microcytosis Not Reportable 12/18/19 04:55 Macrocytosis Not Reportable 12/18/19 04:55 Spherocytes Not Reportable 12/18/19 04:55 Pappenheimer Bodies Not Reportable 12/18/19 04:55 Sickle Cells Not Reportable 12/18/19 04:55 Target Cells Not Reportable 12/18/19 04:55 Tear Drop Cells Not Reportable 12/18/19 04:55 Ovalocytes Not Reportable 12/18/19 04:55 Helmet Cells Not Reportable 12/18/19 04:55 [place] Bodies Not Reportable 12/18/19 04:55 [place] Rings Not Reportable 12/18/19 04:55 [place] Cells Not Reportable 12/18/19 04:55 Bite Cells Not Reportable 12/18/19 04:55 Crenated Cell Not Reportable 12/18/19 04:55 Elliptocytes Not Reportable 12/18/19 04:55 Acanthocytes (Spur) Not Reportable 12/18/19 04:55 Rouleaux Not Reportable 12/18/19 04:55 Hemoglobin C Crystals Not Reportable 12/18/19 04:55 Schistocytes Rare 12/18/19 04:55 Malaria parasites Not Reportable 12/18/19 04:55 [place] Bodies Not Reportable 12/18/19 04:55 Hem Pathologist Commnt No 12/18/19 04:55 Sodium 145 mmol/L (137-145) 12/19/19 10:13 Potassium 4.7 mmol/L (3.6-5.0) 12/19/19 10:13 Chloride 108.8 mmol/L (98-107) H 12/19/19 10:13 Carbon Dioxide 19 mmol/L (22-30) L 12/19/19 10:13 Anion Gap 22 mmol/L 12/19/19 10:13 BUN 36 mg/dL (7-17) H 12/19/19 10:13 Creatinine 3.9 mg/dL (0.7-1.2) H 12/19/19 10:13 Estimated GFR 14 ml/min 12/19/19 10:13 BUN/Creatinine Ratio 9 % 12/19/19 10:13 Glucose 97 mg/dL (65-100) 12/19/19 10:13 POC Glucose 107 (70-105) H 12/19/19 11:58 Calcium 9.7 mg/dL (8.4-10.2) 12/19/19 10:13 Total Bilirubin 0.30 mg/dL (0.1-1.2) 12/17/19 12:16 AST 31 units/L (5-40) 12/17/19 12:16 ALT 13 units/L (7-56) 12/17/19 12:16 Alkaline Phosphatase 61 units/L (35-129) 12/17/19 12:16 Total Creatine Kinase 432 units/L (30-135) H 12/17/19 12:16 Troponin T 0.106 ng/mL (0.00-0.029) H* 12/19/19 10:13 Total Protein 7.1 g/dL (6.3-8.2) 12/17/19 12:16 Albumin 3.6 g/dL (3.9-5) L 12/17/19 12:16 Albumin/Globulin Ratio 1.0 % 12/17/19 12:16 Triglycerides 122 mg/dL (2-149) 12/17/19 12:16 Cholesterol 220 mg/dL (50-199) H 12/17/19 12:16 LDL Cholesterol Direct 151 mg/dL (50-130) H 12/17/19 12:16 HDL Cholesterol 57 mg/dL (40-59) 12/17/19 12:16 Cholesterol/HDL Ratio 3.85 % 12/17/19 12:16 TSH 1.890 mlU/mL (0.270-4.200) 12/17/19 14:52 Free T4 1.28 ng/dL (0.76-1.46) 12/17/19 14:52 PTH Intact 141.2 pg/mL (15-65) H 12/18/19 04:55 Urine Color Yellow (Yellow) 12/17/19 13:31 Urine Turbidity Slightly-cloudy (Clear) 12/17/19 13:31 Urine pH 5.0 (5.0-7.0) 12/17/19 13:31 Ur Specific [place] 1.013 (1.003-1.030) 12/17/19 13:31 Urine Protein >500 mg/dL (Negative) 12/17/19 13:31 Urine Glucose (UA) 50 mg/dL (Negative) 12/17/19 13:31 Urine Ketones Neg mg/dL (Negative) 12/17/19 13:31 Urine Blood Mod (Negative) 12/17/19 13:31 Urine Nitrite Neg (Negative) 12/17/19 13:31 Urine Bilirubin Neg (Negative) 12/17/19 13:31 Urine Urobilinogen < 2.0 mg/dL (<2.0) 12/17/19 13:31 Ur Leukocyte Esterase Tr (Negative) 12/17/19 13:31 Urine WBC (Auto) 4.0 /HPF (0.0-6.0) 12/17/19 13:31 Urine RBC (Auto) 2.0 /HPF (0.0-6.0) 12/17/19 13:31 U Epithel Cells (Auto) 2.0 /HPF (0-13.0) 12/17/19 13:31 Urine Bacteria (Auto) 1+ /HPF (Negative) 12/17/19 13:31 Urine Mucus Few /HPF 12/17/19 13:31 Salicylates < 0.3 mg/dL (2.8-20.0) L 12/17/19 12:16 Urine Opiates Screen Presumptive positive 12/17/19 13:31 Urine Methadone Screen Presumptive negative 12/17/19 13:31 Acetaminophen < 5.0 ug/mL (10.0-30.0) L 12/17/19 12:16 Ur Barbiturates Screen Presumptive negative 12/17/19 13:31 Ur Phencyclidine Scrn Presumptive negative 12/17/19 13:31 Ur Amphetamines Screen Presumptive negative 12/17/19 13:31 U Benzodiazepines Scrn Presumptive negative 12/17/19 13:31 Urine Cocaine Screen Presumptive negative 12/17/19 13:31 U Marijuana (THC) Screen Presumptive negative 12/17/19 13:31 Drugs of Abuse Note Disclamer 12/17/19 13:31 Plasma/Serum Alcohol < 0.01 % (0-0.07) 12/17/19 11:58 Active Medications - Current Medications Current Medications: Generic Name Dose Route Start Last Admin Trade Name Freq PRN Reason Stop Dose Admin Acetaminophen 650 mg 12/17/19 13:56 Tylenol PO Q4H PRN Pain MILD(1-3)/Fever >100.5/CALIX Albuterol 2.5 mg 12/17/19 13:56 Proventil IH Q4HRT PRN Shortness Of Breath Aspirin 81 mg 12/19/19 10:00 12/19/19 10:51 Baby Aspirin PO 81 mg QDAY JESSICA Administration Atorvastatin Calcium 40 mg 12/18/19 22:00 12/19/19 00:02 Lipitor PO 40 mg QHS JESSICA Administration Clonidine HCl 0.3 mg 12/17/19 15:00 12/17/19 15:40 Catapres-Tts Patch TD 0.3 mg QWEEK JESSICA Administration Dextrose 50 ml 12/17/19 14:06 D50w (25gm) Syringe IV Q30MIN PRN Hypoglycemia Protocol Hydralazine HCl 10 mg 12/17/19 17:09 12/18/19 11:46 Apresoline IV 10 mg Q6HR PRN Administration Hypertension Hydralazine HCl 50 mg 12/19/19 15:00 Apresoline PO Q8HR JESSICA Sodium Chloride 1,000 mls @ 50 mls/hr 12/17/19 15:00 12/18/19 23:13 Nacl 0.45% 1000 Ml IV 75 mls/hr DIRECT JESSICA Administration Insulin Human Lispro 0 unit 12/17/19 18:00 12/19/19 12:42 Humalog SUB-Q Not Given Q6HR [facility] Protocol Metoprolol Tartrate 100 mg 12/18/19 22:00 12/19/19 10:51 Metoprolol PO 100 mg BID JESSICA Administration Nifedipine 60 mg 12/19/19 16:00 Procardia Xl PO QDAY JESSICA Ondansetron HCl 4 mg 12/17/19 13:56 Zofran IV Q8H PRN Nausea And Vomiting Pantoprazole Sodium 40 mg 12/18/19 10:00 12/19/19 10:51 Protonix PO 40 mg DAILY JESSICA Administration Polyethylene Glycol 17 gm 12/17/19 16:00 12/19/19 10:52 Miralax 3350 PO 17 gm QDAY JESSICA Administration Sodium Chloride 10 ml 12/17/19 22:00 12/19/19 10:52 Sodium Chloride Flush Syringe 10 Ml IV 10 ml BID JESSICA Administration Sodium Chloride 10 ml 12/17/19 13:56 Sodium Chloride Flush Syringe 10 Ml IV PRN PRN LINE FLUSH
[2019-12-19] MEDS: hydrALAZINE 25 MG TAB PO SCH ×2 (17:33→23:01)
--- NOTE | 2019-12-19 22:25 | Progress Note ---
Assessment and Plan 1. Acute kidney injury: Suspect vasomotor GIGI superimposed on CKD. No hypotension. Creatinine was 1.5 (10/2017) Renal US was negative for hydro. Urine studies pending. Continue IV fluids. Renal function is improving. Monitor renal function. Renal prognosis is guarded. Avoid nephrotoxic agents. Meds dosage based on GFR. 2. FEN: Metabolic acidosis, monitor. Mild hypernatremia, 1/2 NS, monitor. Monitor lytes. 3. Metabolic encephalopathy: Improving. Head CT negative. U.tox positive for Opiates. 4. Hypoglycemia: Blood sugar 59 per EMS arrival. Received dextrose in the ED. Improved. 5. Proteinuria: Likely diabetic nephropathy. 6. Elevated troponin. ?from GIGI on CKD. 7. Hypertension: Hydralazine added. Follow BP. Examination: General appearance: well-developed, well-nourished, appears stated age HEENT: ATNC, TIMOTHY Neck: supple, trachea midline Respiratory: Clear to Ascultation Heart: regular, S1S2, no murmurs Gastrointestinal: soft, normoactive bowel sounds, not tender, not distended Integumentary: no rash, warm and dry Neurologic: confused, non-focal Ext: no edema Subjective Date of service: 12/19/19 Principal diagnosis: AMS Interval history: Patient was seen and examined at the bedside. Doing ok. Objective - Vital Signs Vital signs: Vital Signs - 12hr 12/19/19 12/19/19 12/19/19 12:05 14:12 16:54 Temperature 98.1 F 98.2 F Pulse Rate 75 Respiratory 18 18 Rate Blood Pressure 165/97 146/81 O2 Sat by Pulse Oximetry 12/19/19 19:41 Temperature 98.0 F Pulse Rate 71 Respiratory 18 Rate Blood Pressure 136/72 O2 Sat by Pulse 100 Oximetry - Lab 12/18/19 04:55 12/19/19 10:13 Most recent lab results Calcium 9.7 mg/dL (8.4-10.2) 12/19/19 10:13 Medications & Allergies - Medications Allergies/Adverse Reactions: Allergies doxycycline Allergy (Verified 08/26/18 08:26) Anaphylaxis erythromycin base Allergy (Verified 08/26/18 08:26) Anaphylaxis Tetracyclines Allergy (Verified 08/26/18 08:26) Anaphylaxis Home Medications: Home Medications Medication Instructions Recorded Confirmed Last Taken Type Insulin NPH/Regular [Novolin 70/30] 15 unit SQ QPM #1 vial 10/22/16 11/12/16 10/22/16 Rx Insulin NPH/Regular [Novolin 70/30] 45 unit SQ QAM #1 vial 10/22/16 11/12/16 10/22/16 Rx Omeprazole 40 mg PO DAILY 10/22/16 11/12/16 11/11/16 History Syringe-Needle,Insulin,0.5 ml 1 each MC BID #1 box 10/22/16 11/12/16 10/22/16 Rx [[facility] Syringes] polyethylene glycoL 3350 [Miralax 17 gm PO QDAY #30 packet 10/06/17 Unknown Rx 3350] Cephalexin [Keflex] 500 mg PO BID #20 capsule 07/21/18 Unknown Rx Ibuprofen [Motrin 600 MG tab] 600 mg PO Q8H PRN #30 tablet 07/21/18 Unknown Rx Sulfamethoxazole/Trimethoprim 1 each PO BID 10 Days #20 tablet 07/21/18 Unknown Rx [Bactrim DS TAB] Chlorhexidine Gluconate [Hibiclens] 10 ml TP BID #240 liquid 08/25/18 Unknown Rx Ketorolac [Toradol] 10 mg PO Q6H PRN #15 tablet 08/25/18 Unknown Rx Sulfamethoxazole/Trimethoprim 1 each PO BID #20 tablet 08/25/18 Unknown Rx [Bactrim DS TAB] cephALEXin [Keflex] 500 mg PO Q6HR #40 capsule 08/25/18 Unknown Rx Active Medications: Generic Name Dose Route Start Last Admin Trade Name Freq PRN Reason Stop Dose Admin Acetaminophen 650 mg 12/17/19 13:56 Tylenol PO Q4H PRN Pain MILD(1-3)/Fever >100.5/CALIX Albuterol 2.5 mg 12/17/19 13:56 Proventil IH Q4HRT PRN Shortness Of Breath Aspirin 81 mg 12/19/19 10:00 12/19/19 10:51 Baby Aspirin PO 81 mg QDAY JESSICA Administration Atorvastatin Calcium 40 mg 12/18/19 22:00 12/19/19 00:02 Lipitor PO 40 mg QHS JESSICA Administration Clonidine HCl 0.3 mg 12/17/19 15:00 12/17/19 15:40 Catapres-Tts Patch TD 0.3 mg QWEEK JESSICA Administration Dextrose 50 ml 12/17/19 14:06 D50w (25gm) Syringe IV Q30MIN PRN Hypoglycemia Protocol Hydralazine HCl 10 mg 12/17/19 17:09 12/18/19 11:46 Apresoline IV 10 mg Q6HR PRN Administration Hypertension Hydralazine HCl 50 mg 12/19/19 15:00 12/19/19 17:33 Apresoline PO 50 mg Q8HR JESSICA Administration Sodium Chloride 1,000 mls @ 50 mls/hr 12/17/19 15:00 12/18/19 23:13 Nacl 0.45% 1000 Ml IV 75 mls/hr DIRECT JESSICA Administration Insulin Human Lispro 0 unit 12/17/19 18:00 12/19/19 17:34 Humalog SUB-Q 2 unit Q6HR JESSICA Administration Protocol Metoprolol Tartrate 100 mg 12/18/19 22:00 12/19/19 10:51 Metoprolol PO 100 mg BID JESSICA Administration Nifedipine 60 mg 12/19/19 16:00 12/19/19 17:34 Procardia Xl PO 60 mg QDAY JESSICA Administration Ondansetron HCl 4 mg 12/17/19 13:56 Zofran IV Q8H PRN Nausea And Vomiting Pantoprazole Sodium 40 mg 12/18/19 10:00 12/19/19 10:51 Protonix PO 40 mg DAILY JESSICA Administration Polyethylene Glycol 17 gm 12/17/19 16:00 12/19/19 10:52 Miralax 3350 PO 17 gm QDAY JESSICA Administration Sodium Chloride 10 ml 12/17/19 22:00 12/19/19 10:52 Sodium Chloride Flush Syringe 10 Ml IV 10 ml BID JESSICA Administration Sodium Chloride 10 ml 12/17/19 13:56 Sodium Chloride Flush Syringe 10 Ml IV PRN PRN LINE FLUSH
[2019-12-20] MEDS: INSULIN LISPRO 100 UNIT/ML SUB-Q SCH
[2019-12-20] MEDS: hydrALAZINE 25 MG TAB PO SCH (06:17)
[2019-12-20 06:53] LABS: Calcium 9.5 mg/dL (8.4-10.2)
[2019-12-20] MEDS ORDERED: REGADENOSON 0.4 MG/5 ML INJ IV ONE (07:03)
--- NOTE | 2019-12-20 07:35 | Progress Note ---
Assessment and Plan 1. Acute kidney injury: Suspect vasomotor GIGI superimposed on CKD. Worsening CKD is not ruled out. History is very limited. No hypotension. Creatinine was 1.5 (10/2017). Current creatinine level is worsening, now 4.1 from 3.9. IV fluids are ordered but patient has been refusing placement of INT. Monitor renal function. Renal prognosis is guarded. Avoid nephrotoxic agents. Meds dosage based on GFR. 2. FEN: Metabolic acidosis, monitor. Mild hypernatremia, improving, continue IV fluids if INT is placed, monitor. Monitor lytes. 3. Metabolic encephalopathy: Head CT negative. U.tox positive for Opiates. 4. Hypoglycemia: Blood sugar 59 per EMS arrival. Received dextrose in the ED. Blood sugars appear to be controlled, last POC 111. Currently NPO. 5. Proteinuria: Likely diabetic nephropathy. 6. Elevated troponin. ?from GIGI on CKD. 7. Hypertension: Appears controlled. Hydralazine dosage reduced 12/20 d/t pt refusing INT and IV fluids. Subjective Date of service: 12/20/19 Principal diagnosis: AMS Interval history: Patient seen and examined at the bedside. No family is present in the room. Patient is awake and sitting in the chair. She is quite irritated today and states she wants to leave. Objective - Exam Narrative Exam: General appearance: well-developed, well-nourished, appears stated age EENT: ATNC, PERRL Neck: Present: trachea midline Respiratory: Clear to Ascultation Heart: regular, S1S2, no murmurs Gastrointestinal: Present: normoactive bowel sounds. Absent: tenderness, distended Integumentary: no rash, warm and dry Neurologic: poor eye contact, minimal conversation Musculoskeletal: Present: other (no edema) - Vital Signs Vital signs: Vital Signs - 12hr 12/19/19 12/19/19 12/20/19 19:41 19:45 00:00 Temperature 98.0 F 98.0 F 97.7 F Pulse Rate 71 71 65 Respiratory 18 18 18 Rate Blood Pressure 136/72 Blood Pressure 136/72 127/69 [Left] O2 Sat by Pulse 100 98 Oximetry 12/20/19 05:18 Temperature 97.4 F L Pulse Rate 65 Respiratory 18 Rate Blood Pressure Blood Pressure 122/69 [Left] O2 Sat by Pulse 100 Oximetry - Lab 12/18/19 04:55 12/20/19 05:31 Most recent lab results Calcium 9.5 mg/dL (8.4-10.2) 12/20/19 05:31 Medications & Allergies - Medications Allergies/Adverse Reactions: Allergies doxycycline Allergy (Verified 08/26/18 08:26) Anaphylaxis erythromycin base Allergy (Verified 08/26/18 08:26) Anaphylaxis Tetracyclines Allergy (Verified 08/26/18 08:26) Anaphylaxis Home Medications: Home Medications Medication Instructions Recorded Confirmed Last Taken Type Insulin NPH/Regular [Novolin 70/30] 15 unit SQ QPM #1 vial 10/22/16 11/12/16 10/22/16 Rx Insulin NPH/Regular [Novolin 70/30] 45 unit SQ QAM #1 vial 10/22/16 11/12/16 10/22/16 Rx Omeprazole 40 mg PO DAILY 10/22/16 11/12/16 11/11/16 History Syringe-Needle,Insulin,0.5 ml 1 each MC BID #1 box 10/22/16 11/12/16 10/22/16 Rx [[facility]ocate Syringes] polyethylene glycoL 3350 [Miralax 17 gm PO QDAY #30 packet 10/06/17 Unknown Rx 3350] Cephalexin [Keflex] 500 mg PO BID #20 capsule 07/21/18 Unknown Rx Ibuprofen [Motrin 600 MG tab] 600 mg PO Q8H PRN #30 tablet 07/21/18 Unknown Rx Sulfamethoxazole/Trimethoprim 1 each PO BID 10 Days #20 tablet 07/21/18 Unknown Rx [Bactrim DS TAB] Chlorhexidine Gluconate [Hibiclens] 10 ml TP BID #240 liquid 08/25/18 Unknown Rx Ketorolac [Toradol] 10 mg PO Q6H PRN #15 tablet 08/25/18 Unknown Rx Sulfamethoxazole/Trimethoprim 1 each PO BID #20 tablet 08/25/18 Unknown Rx [Bactrim DS TAB] cephALEXin [Keflex] 500 mg PO Q6HR #40 capsule 08/25/18 Unknown Rx Active Medications: Generic Name Dose Route Start Last Admin Trade Name Freq PRN Reason Stop Dose Admin Acetaminophen 650 mg 12/17/19 13:56 Tylenol PO Q4H PRN Pain MILD(1-3)/Fever >100.5/CALIX Albuterol 2.5 mg 12/17/19 13:56 Proventil IH Q4HRT PRN Shortness Of Breath Aspirin 81 mg 12/19/19 10:00 12/19/19 10:51 Baby Aspirin PO 81 mg QDAY JESSICA Administration Atorvastatin Calcium 40 mg 12/18/19 22:00 12/19/19 23:01 Lipitor PO 40 mg QHS JESSICA Administration Clonidine HCl 0.3 mg 12/17/19 15:00 12/17/19 15:40 Catapres-Tts Patch TD 0.3 mg QWEEK JESSICA Administration Dextrose 50 ml 12/17/19 14:06 D50w (25gm) Syringe IV Q30MIN PRN Hypoglycemia Protocol Hydralazine HCl 10 mg 12/17/19 17:09 12/18/19 11:46 Apresoline IV 10 mg Q6HR PRN Administration Hypertension Hydralazine HCl 50 mg 12/19/19 15:00 12/20/19 06:17 Apresoline PO Not Given Q8HR JESSICA Sodium Chloride 1,000 mls @ 50 mls/hr 12/17/19 15:00 12/18/19 23:13 Nacl 0.45% 1000 Ml IV 75 mls/hr DIRECT JESSICA Administration Insulin Human Lispro 0 unit 12/17/19 18:00 12/20/19 00:00 Humalog SUB-Q Not Given Q6HR [facility] Protocol Metoprolol Tartrate 100 mg 12/18/19 22:00 12/19/19 23:00 Metoprolol PO 100 mg BID JESSICA Administration Nifedipine 60 mg 12/19/19 16:00 12/19/19 17:34 Procardia Xl PO 60 mg QDAY JESSICA Administration Ondansetron HCl 4 mg 12/17/19 13:56 Zofran IV Q8H PRN Nausea And Vomiting Pantoprazole Sodium 40 mg 12/18/19 10:00 12/19/19 10:51 Protonix PO 40 mg DAILY JESSICA Administration Polyethylene Glycol 17 gm 12/17/19 16:00 12/19/19 10:52 Miralax 3350 PO 17 gm QDAY JESSICA Administration Sodium Chloride 10 ml 12/17/19 22:00 12/19/19 23:05 Sodium Chloride Flush Syringe 10 Ml IV 10 ml BID JESSICA Administration Sodium Chloride 10 ml 12/17/19 13:56 Sodium Chloride Flush Syringe 10 Ml IV PRN PRN LINE FLUSH
[2019-12-20 09:55] VITALS: BP 131/74
[2019-12-20] MEDS ORDERED: hydrALAZINE 25 MG TAB PO SCH (09:58)
--- NOTE | 2019-12-20 11:24 | Progress Note ---
Assessment and Plan Pt refusing labwork, meds, peripheral IV. Declined stress test this AM. Currently stable cardiac status. CE elevation appears c/w NSTEMI type II. Nothing further to add from cardiac perspective at this time as pt is refusing stress test. Will sign off. Recommend follow up in our office with Dr. Calvert within 1-2 weeks of discharge ([phone]). The patient has been seen in conjunction with Dr. Calvert who agrees with the assessment and plan of care. - Patient Problems (1) NSTEMI (non-ST elevated myocardial infarction) Current Visit: Yes Status: Acute Plan to address problem: suspect type II (2) AMS (altered mental status) Current Visit: Yes Status: Acute (3) Acute kidney injury Current Visit: Yes Status: Acute (4) Dehydration Current Visit: Yes Status: Acute (5) Hypernatremia Current Visit: Yes Status: Acute (6) HTN (hypertension) Current Visit: Yes Status: Chronic (7) Diabetes Current Visit: Yes Status: Chronic (8) Functional quadriplegia Current Visit: Yes Status: Chronic Subjective Date of service: 12/20/19 Principal diagnosis: AMS Interval history: pt sitting up in chair, no current complaints. in SR on telemetry. Objective Last Vital Signs Temp 98.0 F 12/20/19 07:53 Pulse 64 12/20/19 06:15 Resp 18 12/20/19 07:53 BP 131/74 12/20/19 07:53 Pulse Ox 99 12/20/19 06:15 - Physical Examination General: No Apparent Distress HEENT: Positive: PERRL, Normocephaly, Mucus Membranes Moist Neck: Positive: neck supple, trachea midline Cardiac: Positive: Reg Rate and Rhythm, S1/S2 Lungs: Positive: Decreased Breath Sounds Neuro: Positive: Other (no focal deficits noted) Abdomen: Negative: Tender Musculoskeletal: No Pain Extremities: Absent: edema - Labs and Meds Comprehensive Metabolic Panel 12/20/19 Range/Units 05:31 Sodium 142 (137-145) mmol/L Potassium 4.3 (3.6-5.0) mmol/L Chloride 106.7 (98-107) mmol/L Carbon Dioxide 18 L (22-30) mmol/L BUN 40 H (7-17) mg/dL Creatinine 4.1 H (0.7-1.2) mg/dL Glucose 132 H (65-100) mg/dL Calcium 9.5 (8.4-10.2) mg/dL - Imaging and Cardiology EKG: report reviewed, image reviewed Echo: report reviewed (EF 55-60%, no significant abnormalities. ) - EKG Sinus rhythms and dysrhythmias: sinus rhythm
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
--- NOTE | 2019-12-20 14:27 | Discharge Summary ---
Providers - Providers Date of Admission: 12/17/19 13:56 Attending physician: KARAN NICHOLS MD 12/17/19 13:20 Consult to Mental Health [CONS] Stat Reason For Exam: altered mental status hx of mental health disorder 12/17/19 14:03 Consult to Physician [CONS] Routine Comment: Consulting Provider: TRISTON HUNTER Physician Instructions: Reason For Exam: GIGI 12/17/19 15:32 Physical Therapy Evaluation and Treat [CONS] Routine Comment: Reason For Exam: weakness 12/17/19 15:33 Consult to Case Management [CONS] Routine Services Needed at Discharge: Other Arch Cushion Skiving Machine Operator Notified:: in AM Additional Physician Instructions: discharge planning 12/18/19 12:50 Physical Therapy Evaluation and Treat [CONS] Routine Comment: Reason For Exam: Generalized weakness 12/18/19 15:05 Consult to Physician [CONS] Routine Comment: Consulting Provider: ROSALINDA GONZALEZ Physician Instructions: Reason For Exam: Elevated Troponin Primary care physician: PRODUCT TECHNICIAN Hospitalization Condition: Stable Hospital course: 54 yo AA woman with history of DM type 2, HTN, GERD, OA, [place], functional quadriplegic/bed bound and unspecified mental disorder who presents to [facility] ED with AMS. Patient gives no history but according to chart; brother report that the patient was found down and unresponsive on the bathroom floor with vomit on the side of her face. EMS was notified and upon arrival the patient was found to be in distress and subsequently transported to [facility] for further care and evaluation. Patient found to have acute kidney injury, metabolic acidosis, metabolic encephalopathy, hypernatremia and volume depletion. Prior review of EMR reveals a Creatinine of 1.5 on 10/07/2017 (which is last Cr in our EMR). -Patient admits that she does not drink enough water, she gets dehydrated easily * pCXR: NAF * CT head: NAF Acute Metabolic encephalopathy Likely due to dehydration, now resolving Acute kidney injury due to vasomotor nephropathy superimposed upon chronic kidney disease, poa Improved with IV fluids, this is possibly the patient's new baseline Elevated Troponin Likely elevated in setting of chronic kidney disease. she refused stress test DM insulin was dc as pt was normoglycemic Acidosis,metabolic Improving with IV fluids Hypernatremia Improving with IV fluids Volume depletion Continue IV fluids Debility , case management consulted for discharge planning/placement DVT prophylaxis SCD to bilateral lower extremities while in bed, prophylactic heparin Mental health disorder consulted psy team Disposition: DC-01 TO HOME OR SELFCARE Time spent for discharge: 33 mins Core Measure Documentation - Palliative Care Palliative Care/ Comfort Measures: Not Applicable - Core Measures Any of the following diagnoses?: none Exam - Constitutional Vitals: Temp Pulse Resp BP Pulse Ox 98.0 F 64 18 131/74 99 12/20/19 07:53 12/20/19 06:15 12/20/19 07:53 12/20/19 07:53 12/20/19 06:15 General appearance: Present: no acute distress, well-nourished - EENT Eyes: Present: PERRL ENT: hearing intact, clear oral mucosa - Neck Neck: Present: supple, normal ROM - Respiratory Respiratory effort: normal Respiratory: bilateral: CTA - Cardiovascular Heart Sounds: Present: S1 & S2. Absent: rub, click - Extremities Extremities: pulses symmetrical, No edema Peripheral Pulses: within normal limits - Abdominal General gastrointestinal: Present: soft, non-tender, non-distended, normal bowel sounds Female genitourinary: Present: normal - Integumentary Integumentary: Present: clear, warm, dry - Musculoskeletal Musculoskeletal: gait normal, strength equal bilaterally - Psychiatric Psychiatric: appropriate mood/affect, intact judgment & insight - Neurologic Neurologic: CNII-XII intact, moves all extremities Plan Follow up with: PRIMARY CARE, [Primary Care Provider] - 3-5 Days ROSALINDA GONZALEZ MD [Staff Physician] - 7 Days TRISTON HUNTER MD [Staff Physician] - 7 Days Prescriptions: RX: AtorvaSTATin [Lipitor] 40 mg PO QHS #90 tablet RX: hydrALAZINE [Apresoline TAB] 25 mg PO Q8HR #90 tablet RX: cloNIDine-TTS PATCH [Catapres-Tts 0.3mg Patch] 0.3 mg TD QWEEK #4 patch RX: Metoprolol [Lopressor TAB] 100 mg PO BID #60 tablet RX: NIFEdipine XL [Procardia Xl] 60 mg PO QDAY #30 tablet RX: Pantoprazole [Protonix TAB] 40 mg PO DAILY #30 tablet
== END 2019-12-20 21:00 | disposition home or self-care (01) | DRG 70 ==
LOC: ED 10:55 → 3A 13:56 → 4A 21:41
PROVIDERS: ADMIT Internal Medicine; ATTEND Internal Medicine
DX: G93.41 Metabolic encephalopathy (principal); I21.A1 Myocardial infarction type 2; N17.0 Acute kidney failure with tubular necrosis; R53.2 Functional quadriplegia; R41.82 Altered mental status, unspecified; K21.9 Gastro-esophageal reflux disease without esophagitis; M19.90 Unspecified osteoarthritis, unspecified site; E11.649 Type 2 diabetes mellitus with hypoglycemia without coma; F29 Unspecified psychosis not due to a substance or known physiological condition; E87.2 Acidosis; E87.0 Hyperosmolality and hypernatremia; E86.9 Volume depletion, unspecified; R53.81 Other malaise; E78.5 Hyperlipidemia, unspecified; E11.65 Type 2 diabetes mellitus with hyperglycemia; R79.89 Other specified abnormal findings of blood chemistry; R80.9 Proteinuria, unspecified; E11.22 Type 2 diabetes mellitus with diabetic chronic kidney disease; I12.9 Hypertensive chronic kidney disease with stage 1 through stage 4 chronic kidney disease, or unspecified chronic kidney disease; N18.9 Chronic kidney disease, unspecified; E86.0 Dehydration; Z90.89 Acquired absence of other organs; Z90.710 Acquired absence of both cervix and uterus; Z88.1 Allergy status to other antibiotic agents; Z79.4 Long term (current) use of insulin; Z83.3 Family history of diabetes mellitus
CPT/HCPCS: 36415; 70450; 71045; 76770; 80048; 80053; 80061; 80307; 80320; 81001; 82550; 82962; 83970; 84439; 84443; 84484; 85007; 85025; 93005; 93010; 93306; 96374; 96375; G0378; A9270-GY; G0480; J0360; J2310; J2785; J7030

== ENCOUNTER 2019-12-23 22:44 | Emergency (ER) | payer MEDICAID ==
--- NOTE | 2019-12-24 01:03 | Emergency Department Report ---
<LAURENCAMACHO - Last Filed: 12/24/19 04:32> ED Psych HPI - General Chief Complaint: Medical Clearance Stated Complaint: MH Time Seen by Provider: 12/24/19 00:56 Source: patient, police, old records reviewed Mode of arrival: Ambulatory Limitations: No Limitations - History of Present Illness Initial Comments: Mrs. Rajan is a 54 yo female with hx of mental health disorder possibly schizophrenia who presents with auditory halluciinations and body pain. She informed triage nurse that she was hearing voices. She has upper arm pain and bilateral knee pain. Otherwise, she is a poor historian. MD Complaint: other (Auditory hallucinations) -: unknown Associated Psychiatric Symptoms: auditory hallucinations History of same: Yes Quality: constant Improves With: none Worsens With: none Context: other (Unknown) Associated Symptoms: other (Extremity pain) Treatments Prior to Arrival: none - Related Data Home Medications Medication Instructions Recorded Confirmed Last Taken Omeprazole 40 mg PO DAILY 10/22/16 12/24/19 11/11/16 Previous Rx's Medication Instructions Recorded Last Taken Type Syringe-Needle,Insulin,0.5 ml 1 each MC BID #1 box 10/22/16 10/22/16 Rx [[facility] Syringes] polyethylene glycoL 3350 [Miralax 17 gm PO QDAY #30 packet 10/06/17 Unknown Rx 3350] Chlorhexidine Gluconate [Hibiclens] 10 ml TP BID #240 liquid 08/25/18 Unknown Rx Aspirin EC [Halfprin EC] 81 mg PO QDAY #90 tablet. 12/20/19 Unknown Rx AtorvaSTATin [Lipitor] 40 mg PO QHS #90 tablet 12/20/19 Unknown Rx Metoprolol [Lopressor TAB] 100 mg PO BID #60 tablet 12/20/19 Unknown Rx NIFEdipine XL [Procardia Xl] 60 mg PO QDAY #30 tablet 12/20/19 Unknown Rx Pantoprazole [Protonix TAB] 40 mg PO DAILY #30 tablet 12/20/19 Unknown Rx cloNIDine-TTS PATCH [Catapres-Tts 0.3 mg TD QWEEK #4 patch 12/20/19 Unknown Rx 0.3mg Patch] hydrALAZINE [Apresoline TAB] 25 mg PO Q8HR #90 tablet 12/20/19 Unknown Rx Allergies Allergy/AdvReac Type Severity Reaction Status Date / Time doxycycline Allergy Anaphylaxis Verified 08/26/18 08:26 erythromycin base Allergy Anaphylaxis Verified 08/26/18 08:26 Tetracyclines Allergy Anaphylaxis Verified 08/26/18 08:26 ED Review of Systems Comment: All other systems reviewed and negative Constitutional: denies: fever, malaise Respiratory: denies: cough Cardiovascular: denies: chest pain ED Past Medical Hx - Past Medical History Previous Medical History?: Yes Hx Hypertension: Yes Hx Heart Attack/AMI: Yes Hx Diabetes: Yes (since 1996) Hx GERD: Yes Hx Arthritis: Yes Hx Psychiatric Treatment: Yes (bipolar, schizophrenia) Additional medical history: mouth infection - Surgical History Past Surgical History?: Yes Additional Surgical History: Tonsilectomy, Hysterectomy - Social History Smoking Status: Never Smoker Substance Use Type: None - Medications Home Medications: Home Medications Medication Instructions Recorded Confirmed Last Taken Type Omeprazole 40 mg PO DAILY 10/22/16 12/24/19 11/11/16 History Syringe-Needle,Insulin,0.5 ml 1 each MC BID #1 box 10/22/16 12/24/19 10/22/16 Rx [[facility] Syringes] polyethylene glycoL 3350 [Miralax 17 gm PO QDAY #30 packet 10/06/17 12/24/19 Unknown Rx 3350] Chlorhexidine Gluconate [Hibiclens] 10 ml TP BID #240 liquid 08/25/18 12/24/19 Unknown Rx Aspirin EC [Halfprin EC] 81 mg PO QDAY #90 tablet. 12/20/19 12/24/19 Unknown Rx AtorvaSTATin [Lipitor] 40 mg PO QHS #90 tablet 12/20/19 12/24/19 Unknown Rx Metoprolol [Lopressor TAB] 100 mg PO BID #60 tablet 12/20/19 12/24/19 Unknown Rx NIFEdipine XL [Procardia Xl] 60 mg PO QDAY #30 tablet 12/20/19 12/24/19 Unknown Rx Pantoprazole [Protonix TAB] 40 mg PO DAILY #30 tablet 12/20/19 12/24/19 Unknown Rx cloNIDine-TTS PATCH [Catapres-Tts 0.3 mg TD QWEEK #4 patch 12/20/19 12/24/19 Unknown Rx 0.3mg Patch] hydrALAZINE [Apresoline TAB] 25 mg PO Q8HR #90 tablet 12/20/19 12/24/19 Unknown Rx ED Physical Exam - General Limitations: No Limitations General appearance: alert, in no apparent distress - Head Head exam: Present: atraumatic, normocephalic - Eye Eye exam: Present: normal appearance - ENT ENT exam: Present: mucous membranes moist - Neck Neck exam: Present: normal inspection, full ROM - Respiratory Respiratory exam: Present: normal lung sounds bilaterally. Absent: respiratory distress, wheezes, rales, rhonchi - Cardiovascular Cardiovascular Exam: Present: regular rate, normal rhythm, normal heart sounds. Absent: systolic murmur, diastolic murmur, rubs, gallop - GI/Abdominal GI/Abdominal exam: Present: soft, normal bowel sounds. Absent: distended, tenderness, guarding, rebound - Extremities Exam Extremities exam: Present: normal inspection - Back Exam Back exam: Present: normal inspection - Neurological Exam Neurological exam: Present: alert, oriented X3 - Psychiatric Psychiatric exam: Present: normal mood, flat affect, other (Disorganized thought pattern, poor insight) - Skin Skin exam: Present: warm, dry, intact, normal color. Absent: rash ED Medical Decision Making - Lab Data Result diagrams: 12/24/19 03:17 12/24/19 03:17 - Medical Decision Making Mrs. Rajan is a 54-year-old female with history of mental health disorder. Recently I admitted patient for acute kidney injury and metabolic encephalopathy. According to conversation with her brother on during previous ED encounter, Ms. Rajan has been admitted to a mental health facility. Unknown diagnosis. She appears to have acute or chronic psychosis with disorganized thought pattern and auditory hallucinations. She does not appear to be a harm to herself or others at this time. It appears that patient does not have adequate mental health support at this time. She will need inpatient or outpa tient psychiatric treatment. At this time awaiting treatment recommendations by our mental health team. She is medically clear for psychiatric care. UA + for UTI, keflex ordered BMP reflects CKD which is baseline for patient since recent discharge ED Disposition Clinical Impression: Disorganized behavior Disposition: DC-01 TO HOME OR SELFCARE Condition: Stable Referrals: PRIMARY CARE, [Primary Care Provider] - 3-5 Days <EVE LAUREN - Last Filed: 12/24/19 14:19> ED Review of Systems ROS: Stated complaint: MH Other details as noted in HPI ED Course Vital Signs 12/23/19 12/24/19 12/24/19 22:53 01:16 08:28 Temperature 98.4 F 98.2 F Pulse Rate 86 83 Respiratory 18 18 18 Rate Blood Pressure 174/77 119/66 O2 Sat by Pulse 99 98 97 Oximetry - Reevaluation(s) Reevaluation #1: 12/24/19 14:18 Patient is been medically cleared by mental health staff. Patient may have been an disorganized state on arrival. Patient is more lucid during our evaluation today and the patient will be discharged home. Please see mental health assessment note below SIL RAJAN Female : 1965 MedRec# [id number] 12/24/19 11:26 - MH Residential Energy Auditor's Note by DANIEL RICO Acct Num: [id number] : 1965 Patient Age: 54 Pt is a 54 yo AA female presenting to ED for MHE, as pt reported physical pain and burning. During ax, pt presented as cooperative, with calm mood, congruent affect and lucid thought process. Pt is alert and oriented x 4, has minimal eye contact and some restless behaviors. Pt stated, I wanted to know what kind of meds to use for skin burning. Pt is denying SI/HI and active A/V H. Pt reports dx of Schizophrenia for years and stated, its not off course right now. Pt reports non-compliance with medication for unknown amount of time. Pt reports chronic homelessness since 2005 and stated that she does not like staying in transitional homes. Pt denies recent attempts to get into [facility]. Pt reports receiving monthly disability. Pt denies substance/alcohol abuse. Pt denies legal issues. Pt reports eating and sleeping when she can. Recommendations: At this time, pt denies SI/HI and does not present with acute psychosis. Residential Energy Auditor recommending d/c with f/u OP tx. Initialized on 12/24/19 11:26 - END OF NOTE ED Medical Decision Making - Lab Data Result diagrams: 12/24/19 03:17 12/24/19 03:17 Critical care attestation.: If time is entered above; I have spent that time in minutes in the direct care of this critically ill patient, excluding procedure time. ED Disposition Is pt being admited?: No Does the pt Need Aspirin: No Time of Disposition: 14:19
[2019-12-24 01:15] LABS: Amphetamine Screen,Urine PRESUMPTIVE NEGATIVE; Benzodiazepines Screen,Urine PRESUMPTIVE NEGATIVE; Cannabinoid Screen,Urine PRESUMPTIVE NEGATIVE; Cocaine Screen,Urine PRESUMPTIVE NEGATIVE; Methadone Screen,Urine PRESUMPTIVE NEGATIVE; Opiate Screen,Urine PRESUMPTIVE NEGATIVE
[2019-12-24 01:19] LABS: Bacteria,Urine 4+ /HPF (Negative); Bilirubin,Urine NEG (Negative); Blood,Urine SM (Negative); Color,Urine Yellow (Yellow); Mucus,Urine FEW /HPF; Urobilinogen,Urine < 2.0 mg/dL (<2.0)
[2019-12-24 03:30] LABS: Basophils % (Auto) 0.6 % (0.0-1.8); Eosinophils # (Auto) 0.2 K/mm3 (0.0-0.4); Eosinophils % (Auto) 2.7 % (0.0-4.3); Hematocrit 26.9 % (30.3-42.9); Hemoglobin 8.9 gm/dl (10.1-14.3); Lymphocytes # (Auto) 1.7 K/mm3 (1.2-5.4); Lymphocytes % (Auto) 24.8 % (13.4-35.0); Mean Corpuscular HGB Conc 33 % (30-34); Mean Corpuscular Volume 84 fl (79-97); Monocytes # (Auto) 0.5 K/mm3 (0.0-0.8); Platelet Count 202 K/mm3 (140-440); Red Cell Distribution Width 14.5 % (13.2-15.2)
[2019-12-24 03:50] LABS: Calcium 9.1 mg/dL (8.4-10.2)
[2019-12-24] MEDS ORDERED: cephALEXin 500 MG CAP PO SCH (04:00)
[2019-12-24 08:31] VITALS: BP 119/66
[2019-12-24] MEDS ORDERED: cephALEXin 250 MG CAP PO SCH (14:00)
== END 2019-12-24 14:49 | disposition home or self-care (01) ==
LOC: ED 22:44
DX: F91.9 Conduct disorder, unspecified (principal); M79.629 Pain in unspecified upper arm; M25.562 Pain in left knee; M25.561 Pain in right knee; I10 Essential (primary) hypertension; E11.9 Type 2 diabetes mellitus without complications; K21.9 Gastro-esophageal reflux disease without esophagitis; M19.90 Unspecified osteoarthritis, unspecified site; F20.9 Schizophrenia, unspecified; F31.9 Bipolar disorder, unspecified; Z90.710 Acquired absence of both cervix and uterus; Z90.89 Acquired absence of other organs; Z79.899 Other long term (current) drug therapy; Z88.8 Allergy status to other drugs, medicaments and biological substances
CPT/HCPCS: 36415; 80048; 80307; 80320; 81001; 85025; G0480